=== PATIENT | female | born 1945 | race Caucasian/White ===

== ENCOUNTER 2025-02-22 22:35 | Inpatient (IN) | payer MEDICARE, MEDICAID ==
[~2025-02-22] VITALS: Ht 165.1 cm; Wt 86.5 kg
[~2025-02-22 22:35] MED LIST: ALBUAER3 IN; ALPR0.254 PO; CLOP75TA70 PO; FLUT250M2 INH; LEVO-849 PO; LISI20TA56 PO; PAR20T PO; SIMV40TA18 PO; [UNRECOGNIZED DRUG - OTHER] PO
--- NOTE | 2025-02-22 22:58 | ED.PDOC ---
History of Present Illness HPI Comments 79-year-old female who came to ER via EMS for wound check. Per EMS, patient picked up at [facility], where she has been a resident for over 3 years. Patient does have history of hypertension, diabetes, Alzheimer's, dementia, Parkinson's disease. Patient is bed-bound. Noted worsening decubitus ulcers on her buttocks and left shoulder, and was advised to seen for further evaluation and management Chief Complaint: Wound Check Time Seen by MD: 22:58 Primary Care Provider: FRANCISCO Reviewed Notes: Household Appliances Salesperson Notes Allergies: Coded Allergies: NO KNOWN ALLERGIES (Unverified , 02/07/15) Home Meds Reported Medications Albuterol Sulfate (VENTOLIN MDI) 90 Mcg Ih, 90 MCG IN 02/08/15 Fluticasone-Salmeterol (Advair Diskus 250/50) 1 Puff Ih, 1 PUFF INH BID, #3 INHALER 3 Refills 02/08/15 Paroxetine (PAXIL TABLET) 20 Mg Tb, 20 MG PO DAILY 02/08/15 Clopidogrel Bisulfate (CLOPIDOGREL) 75 Mg Tab, 75 MG PO DAILY, TAB 02/08/15 Simvastatin (Simvastatin) 40 Mg Tab, 40 MG PO DAILY, TAB 02/08/15 Alprazolam (Alprazolam) 0.25 Mg Tab, 0.25 MG PO TID, TAB 02/08/15 Levothyroxine Sodium (SYNTHROID TABLET) 100 Mcg Tb, 100 MCG PO DAILY 02/08/15 [Medroxyprogesteron] No Conflict Check, 5 MG PO DAILY 02/08/15 Lisinopril (Lisinopril) 20 Mg Tab, 20 MG PO DAILY, TAB 02/08/15 Information Source: Emergency Med Personnel Mode of Arrival: EMS Severity: Moderate Timing: Days Duration: Since onset Past Medical History PAST MEDICAL HISTORY: Alzheimer, Asthma, Dementia, DM, HTN Past Medical History (Other): Parkinson's disease, patient is bed-bound Surgical History: Denies all surgeries VALVE ASSEMBLER History: No Pertinent VALVE ASSEMBLER History Family History Family History: Unobtainable Social History Smoker: Non-Smoker Alcohol: Denies ETOH Use Drugs: Denies Drug Use Lives In: Correction Unable to Obtain due to: Altered Mental Status, Dementia Physical Exam General Appearance: No Apparent Distress, Normal HEENT: Normal ENT Inspection, Pharynx Normal, TMs Normal Neck: Full Range of Motion, Non-Tender, Normal, Normal Inspection Respiratory: Chest Non-Tender, Lungs Clear, No Accessory Muscle Use, No Respiratory Distress, Normal Breath Sounds Cardiovascular: No Edema, No JVD, No Murmur, No Gallop, Normal Peripheral Pulses, Regular Rate/Rhythm Breast Exam: Deferred Gastrointestinal: No Organomegaly, Non Tender, No Pulsatile Mass, Normal Bowel Sounds, Soft Genitalia: Deferred Pelvic: Deferred Rectal: Deferred Extremities: No calf tenderness, Normal capillary refill, Normal inspection, Normal range of motion, Non-tender, No pedal edema Musculoskeletal : Apperance: Normal Neurologic: Alert, phototypesetter operator II-XII nml as Tested, No Motor Deficits, Normal Affect, Normal Mood, No Sensory Deficits Cerebellar Function: Normal Reflexes: Normal Skin: Dry, Normal Color, Warm Lymphatic: No Adenopathy Was a procedure done? Was a procedure done?: No Differential Dx Considerations may include: Anemia, electrolyte imbalance, decubitus ulcers, dementia, urinary tract infection, pneumonia, sepsis X-Ray, Labs, Meds, VS Vital Signs Date Time Temp Pulse Resp B/P (MAP) Pulse Ox O2 Delivery O2 Flow Rate FiO2 02/22/25 22:35 98.0 52 16 131/79 97 98.0 Lab Test 02/22/25 23:07 Range/Units White Blood Count 6.5 4.4-10.8 10^3/uL Red Blood Count 3.55 L 4.0-5.20 10^6/uL Hemoglobin 10.3 L 12.2-16.2 g/dL Hematocrit 31.3 L 36.0-46.0 % Mean Corpuscular Volume 88.1 80.0-100.0 fL Mean Corpuscular Hemoglobin 29.1 28.0-32.0 pg Mean Corpuscular Hemoglobin Concent 33.0 32.0-36.0 g/dL Red Cell Distribution Width 15.6 H 11.8-14.3 % Platelet Count 112 L 140-450 10^3/uL Mean Platelet Volume 7.7 6.9-10.8 fL Neutrophils (%) (Auto) 73.1 37.0-80.0 % Lymphocytes (%) (Auto) 15.4 10.0-50.0 % Monocytes (%) (Auto) 7.8 0.0-12.0 % Eosinophils (%) (Auto) 3.2 0.0-7.0 % Basophils (%) (Auto) 0.5 0.0-2.0 % Neutrophils # (Auto) 4.7 1.6-8.6 10 ^3/uL Lymphocytes # (Auto) 1.0 0.4-5.4 10 ^3/uL Monocytes # (Auto) 0.5 0-1.3 10 ^3/uL Eosinophils # (Auto) 0.2 0-0.8 10 ^3/uL Basophils # (Auto) 0 0-0.2 10 ^3/uL Nucleated Red Blood Cells 0.0 % Sodium Level 138 136-145 mmol/L Potassium Level 3.9 3.5-5.1 mmol/L Chloride Level 102 98-107 mmol/L Carbon Dioxide Level 32 H 20-31 mmol/L Anion Gap 4 L 5-15 Blood Urea Nitrogen 12 9-23 mg/dL Creatinine 0.44 L 0.550-1.02 mg/dL Glomerular Filtration Rate Calc 98 >90 mL/min BUN/Creatinine Ratio 27.3 H 10.0-20.0 Serum Glucose 111 H 74-106 mg/dL Lactic Acid Level 1.2 0.4-2.0 mmol/L Calcium Level 8.2 L 8.7-10.4 mg/dL Magnesium Level 1.7 1.6-2.6 mg/dL Total Bilirubin 0.3 0.2-1.0 mg/dL Aspartate Amino Transferase (AST) 22 13-40 U/L Alanine Aminotransferase (ALT) < 9 7-40 U/L Alkaline Phosphatase 55 46-116 U/L Total Protein 5.3 L 5.7-8.2 g/dL Albumin 3.1 L 3.2-4.8 g/dL Current Medications Medications (Trade) Dose Ordered Sig/Carmelita Route Start Time Stop Time Status Last Admin Cefazolin Sodium 50 ml @ 100 mls/hr ONCE ONCE IV 02/22/25 22:45 02/22/25 23:14 DC 02/22/25 23:59 Time of 1ST Reevaluation: 22:54 Reevaluation 1ST: Unchanged Patient Education/Counseling: Other (Patient has dementia) Family Education/Counseling: No Family Present SEPSIS Sepsis Screen Date sepsis recognized/suspect: Feb 22, 2025 Time Sepsis recognized/suspect: 2234 Recent Procedure: No On Antibiotic Therapy: No Respiratory Rate >20: No Heart Rate >90: No Temp<36 C (96.8 F) or >38.3 C: No SBP <90 or MAP <65 mmHG: No New Acute Mental Status Change: No Is the patient on CPAP, BIPAP,: No Physician Orders Blood Culture (02/22/25 22:42) Vital Signs Date Time Temp Pulse Resp B/P (MAP) Pulse Ox O2 Delivery O2 Flow Rate FiO2 02/22/25 22:35 98.0 52 16 131/79 97 98.0 Laboratory Tests Test 02/22/25 23:07 Lactic Acid Level 1.2 mmol/L (0.4-2.0) White Blood Count 6.5 10^3/uL (4.4-10.8) Medications Medications Dose Ordered Sig/Carmelita Route Start Time Stop Time Status Last Admin Dose Admin Cefazolin Sodium 50 ml @ 100 mls/hr ONCE ONCE IV 02/22/25 22:45 02/22/25 23:14 DC 02/22/25 23:59 Departure 1 Departure Time of Disposition: 00:53 Impression: Primary Impression: Sacral decubitus ulcer, stage IV Additional Impressions: Severe protein-calorie malnutrition Dementia Disposition: ADMITTED INPATIENT Condition: Guarded Comments 79-year-old female with a history of dementia and previous sacral decubitus ulcers now brought in by ambulance from her longterm after they noticed sacral decubitus ulcer. Patient is alert but confused. Per EMS report this is her baseline. Patient does have stage IV sacral decubitus ulcer. Lab results show protein calorie malnutrition with low albumin and protein. Patient will need to be admitted for protein calorie malnutrition and sacral decubitus ulcer and dementia Critical Care Note Critical Care Time?: No Stability Stability form required: No Heart Score Heart Score: Heart Score Response (Comments) Value History N/A 0 EKG N/A 0 Age N/A 0 Risk Factors N/A 0 Troponin N/A 0 Total 0 I personally scribed for ZORAIDA RAYO MD ([email or web address]) on 02/22/25 at 22:58. Electronically submitted by Margarito Camacho ([email or web address]). ZORAIDA RAYO MD Feb 22, 2025 22:58
[2025-02-22 23:20] LABS: Hematocrit 31.3 % (36.0-46.0); Hemoglobin 10.3 g/dL (12.2-16.2); Mean Corpuscular Hemoglobin 29.1 pg (28.0-32.0); Mean Corpuscular Volume 88.1 fL (80.0-100.0); Nucleated Red Blood Cells % 0.0 %
[2025-02-22 23:43] LABS: Alkaline Phosphatase 55 U/L (46-116); Anion Gap 4 (5-15); BUN/Creatinine Ratio 27.3 (10.0-20.0); Blood Urea Nitrogen 12 mg/dL (9-23); Carbon Dioxide 32 mmol/L (20-31); Chloride 102 mmol/L (98-107); Glucose 111 mg/dL (74-106); Magnesium 1.7 mg/dL (1.6-2.6); Potassium 3.9 mmol/L (3.5-5.1); Sodium 138 mmol/L (136-145)
[2025-02-22 23:44] LABS: Alanine Aminotransferase < 9 U/L (7-40); Albumin 3.1 g/dL (3.2-4.8); Bilirubin, Total 0.3 mg/dL (0.2-1.0); Calcium 8.2 mg/dL (8.7-10.4); Total Protein 5.3 g/dL (5.7-8.2)
[2025-02-22] MEDS: ceFAZolin 1GM/50ML 50 ML IV ONE (23:59)
[2025-02-23] VITALS (9 sets, daily range): BP systolic 107–142; BP diastolic 37–83; PULSE 50–60; RESP 12–20; TEMP 96.5–98.6; O2SAT 96–100
--- NOTE | 2025-02-23 00:58 | DVHHP2 ---
Admitting Diagnosis: Nonhealing infected open sacrococcygeal decubitus ulcer wound with purulent discharge Failure to oral antibiotics and wound care Dehydration History of Present Illness Patient contact: 02/22/2025 6:00 p.m. at [facility] 79-year-old elderly white female with known history of hypertension, Parkinson's disease Osteoarthritis and severe dementia, bedridden for past five years is brought to ER Of this facility for further eval and management of signs symptoms of progressive Worsening of nonhealing open infected sacrococcygeal decubitus ulcerated wound with profuse purulent discharge, scabbed by necrotic tissue and dehydration Known history of decubitus all started wound on and off for past 10 years She was treated with help of IV and oral antibiotics around late September through early November 02. She was given daily wound care low pressure support mattress As per nursing staff of [facility] patient was noncompliant in terms of receiving Wound care or frequent turning and did not allow changing of undergarments for anticipated fear of local pains. Because of severe dementia-disoriented x3, Difficult to get detailed history. Following to my case discussion with ER staff, Admitted patient to medical floor for excisional surgical debridement Past Medical History Past medical history records: Reviewed Cardiovascular history: Known history of hypertension, bradycardia No history of acute [place]/CAD Respiratory history: History of asthma vs COPD Gastrointestinal history: GE reflux Genitourinary history: Recurrent UTI Endocrine history: Hypothyroidism Neurology history: Parkinson's disease and dementia, seizure disorder Musculoskeletal history: Osteoarthritis of bilateral hip and knees-bed ridden Hemato-oncology history: Chronic iron-deficiency anemia Psychiatric history: Major depression Patient Family History: Family history: Cardiovascular disease G8 SISTER Family history: Hypertension G8 SISTER Allergies: Coded Allergies: NO KNOWN ALLERGIES (Unverified , 02/07/15) Home Meds Active Scripts Albuterol Sulfate (Albuterol Sulfate) 0.083 % Neb, 1 VIAL NEB Q4HPRN, #50 VIAL Prov:JASS REA MD 02/23/25 Reported Medications Albuterol Sulfate (VENTOLIN MDI) 90 Mcg Ih, 90 MCG IN 02/08/15 Fluticasone-Salmeterol (Advair Diskus 250/50) 1 Puff Ih, 1 PUFF INH BID, #3 INHALER 3 Refills 02/08/15 Paroxetine (PAXIL TABLET) 20 Mg Tb, 20 MG PO DAILY 02/08/15 Clopidogrel Bisulfate (CLOPIDOGREL) 75 Mg Tab, 75 MG PO DAILY, TAB 02/08/15 Simvastatin (Simvastatin) 40 Mg Tab, 40 MG PO DAILY, TAB 02/08/15 Alprazolam (Alprazolam) 0.25 Mg Tab, 0.25 MG PO TID, TAB 02/08/15 Levothyroxine Sodium (SYNTHROID TABLET) 100 Mcg Tb, 100 MCG PO DAILY 02/08/15 [Medroxyprogesteron] No Conflict Check, 5 MG PO DAILY 02/08/15 Lisinopril (Lisinopril) 20 Mg Tab, 20 MG PO DAILY, TAB 02/08/15 Current Medications Current Medications Medications (Trade) Dose Ordered Sig/Carmelita Route PRN Reason Start Time Stop Time Status Last Admin Trazodone HCl (Desyrel) 100 mg HS PO 02/23/25 22:00 02/23/25 23:06 Review of Systems Limited four patient has dementia Constitutional: Noted easy tiredness, low-grade fever chills HEENT: Noted no sign of ENT congestion, headache, or conjunctival injection Denies hoarse voice, hearing or visual deficit Neck: Denies cervical spine local/radicular pains, denies goiters/stridor Denies stiffness spasms, reduced ROM, RS: Mild chest congestion, cough, denies wheezing, SOB, pleuritic chest pains CVS: Denies angina, palpitation, SOB, edema, orthopnea, PND GI: Denies loss of appetite, abdominal pains, tenderness, N/V/D, Denies melena, GI bleeding,constipation, : Noted passing dysuria, flank pains, frequency, hematuria, Denies passing foul odor/cloudy turbid urine, nocturia MS: Denies generalized aches/pains, back pains, spasms, stiffness, Denies radicular pains, denies generalized myalgias/muscle weakness EXTs: Denies edema, rash, open wounds, discoloration, radicular p ains NEURO: Denies hypersomnolence, confused mental status, Noted bradykinesis SKIN: Denies rashes or open ulcerated wound ENDOCRINE: Denies polyuria, polydipsia, denies intolerance to heat and cold HEM/LYMPH: Denies easy tiredness, bruising, lymphadenopathy ALLERGY: Denies allergic reactions Psychiatry: Denies anxiety or depression disorder Otherwise the Review of Systems is Negative as per History & Physical Interview: Yes Vital Signs Vital Signs Date Time Temp Pulse Resp B/P (MAP) Pulse Ox O2 Delivery O2 Flow Rate FiO2 02/24/25 19:10 99 Nasal Cannula 2.0 02/24/25 19:10 28 02/24/25 17:00 97.8 59 16 146/55 (85) 97.8 Physical Exam Vital Signs Date Time Temp Pulse Resp B/P (MAP) Pulse Ox O2 Delivery O2 Flow Rate FiO2 02/22/25 22:35 98.0 52 16 131/79 97 98.0 General appearance: Well-developed, obese built elderly white female in discomfort due to open wound over lower back with purulent discharge, but no apparent distress no respiratory distress Head: Normocephalic nontraumatic Eyes: EOMI, LINDSAY, sclera nonicteric, conjunctive- pale+1 ENT: No congestion, NSL bilateral symmetrical, oral mucosa dry Neck: Supple, carotid upstroke +2, trachea R off midline, JVD-1 cm, C spine- Reduced ROM no use of sternomastoid muscle No thyroid goiter/stridor/enlarged lymph node , Chest: Bilateral symmetrical expansions, emphysema No costochondral tenderness Breasts: I exam - Bilateral symmetrical, Pexam - deferred Lungs: clear breath sounds all over except reduced at bases CVS: PMI-1 cm medial to L MCL in fifth ICS , S1-S2 NSR no S3 GI: Abdomen soft, obese, bowel sounds normoactive No focal tenderness, No hepatosplenomegaly, no mass no hernia , : No CVA tenderness, no bladder mass palpable, genitalia-NE SKIN: Turgor dry, color pale, no rash, no icterus, No varicosity, no ulcers or wounds EXTs: No edema, color pink, no rash, no ecchymosis distal pulses +1 capillary refill <2 seconds, Onychomycosis affecting bilateral feet Stage I decubitus ulcers scabbed with necrosis over first and second digit JOINTS; Reduced range of motion and bilateral he had been means BACK: No apparent lumbosacral spinal muscle tenderness, and 4 cm in diameter stage IV decubitus ulcer with foul order purulent discharge LYMPH NODES: No cervical, axillary or inguinal lymph nodes Neuro: Awake alert disoriented x3, severe dementia Moves upper and lower extremity with Bradykinesis Sensory/gait can not be assessed DTR +2, PSYCH: Affect depressed- Diagnostic labs Lab Test 02/22/25 23:07 Range/Units White Blood Count 6.5 4.4-10.8 10^3/uL Red Blood Count 3.55 L 4.0-5.20 10^6/uL Hemoglobin 10.3 L 12.2-16.2 g/dL Hematocrit 31.3 L 36.0-46.0 % Mean Corpuscular Volume 88.1 80.0-100.0 fL Mean Corpuscular Hemoglobin 29.1 28.0-32.0 pg Mean Corpuscular Hemoglobin Concent 33.0 32.0-36.0 g/dL Red Cell Distribution Width 15.6 H 11.8-14.3 % Platelet Count 112 L 140-450 10^3/uL Mean Platelet Volume 7.7 6.9-10.8 fL Neutrophils (%) (Auto) 73.1 37.0-80.0 % Lymphocytes (%) (Auto) 15.4 10.0-50.0 % Monocytes (%) (Auto) 7.8 0.0-12.0 % Eosinophils (%) (Auto) 3.2 0.0-7.0 % Basophils (%) (Auto) 0.5 0.0-2.0 % Neutrophils # (Auto) 4.7 1.6-8.6 10 ^3/uL Lymphocytes # (Auto) 1.0 0.4-5.4 10 ^3/uL Monocytes # (Auto) 0.5 0-1.3 10 ^3/uL Eosinophils # (Auto) 0.2 0-0.8 10 ^3/uL Basophils # (Auto) 0 0-0.2 10 ^3/uL Nucleated Red Blood Cells 0.0 % Sodium Level 138 136-145 mmol/L Potassium Level 3.9 3.5-5.1 mmol/L Chloride Level 102 98-107 mmol/L Carbon Dioxide Level 32 H 20-31 mmol/L Anion Gap 4 L 5-15 Blood Urea Nitrogen 12 9-23 mg/dL Creatinine 0.44 L 0.550-1.02 mg/dL Glomerular Filtration Rate Calc 98 >90 mL/min BUN/Creatinine Ratio 27.3 H 10.0-20.0 Serum Glucose 111 H 74-106 mg/dL Lactic Acid Level 1.2 0.4-2.0 mmol/L Calcium Level 8.2 L 8.7-10.4 mg/dL Magnesium Level 1.7 1.6-2.6 mg/dL Total Bilirubin 0.3 0.2-1.0 mg/dL Aspartate Amino Transferase (AST) 22 13-40 U/L Alanine Aminotransferase (ALT) < 9 7-40 U/L Alkaline Phosphatase 55 46-116 U/L Total Protein 5.3 L 5.7-8.2 g/dL Albumin 3.1 L 3.2-4.8 g/dL SEPSIS Sepsis Screen Date sepsis recognized/suspect: Feb 22, 2025 Time Sepsis recognized/suspect: 2234 Recent Procedure: No On Antibiotic Therapy: No Respiratory Rate >20: No Heart Rate >90: No Temp<36 C (96.8 F) or >38.3 C: No SBP <90 or MAP <65 mmHG: No New Acute Mental Status Change: No Is the patient on CPAP, BIPAP,: No Physician Orders Blood Culture (02/22/25 22:42) Admit (02/23/25 00:50) Nitroglycerin Sublingual (Ntrostat Subli (02/23/25 01:00) Morphine Sulfate Injection (02/23/25 01:00) Stat Ekg For Chest Pain (02/23/25 00:50) Notify Md Of Changes From Base (02/23/25 00:50) Plant Specialist For 24 Hours (02/23/25 00:50) Emergency Dysrhythmia Protocol (02/23/25 00:50) Rhythm Strips Once Every Shift (02/23/25 00:50) Oxygen By Nasal Cannula (02/23/25 00:50) Urine Bacterial Culture (02/23/25 00:50) Chest Xray 1 View (02/23/25 01:04) * Wound Consult (02/23/25 ) * Infectious Marley Rea (02/23/25 01:04) * Infectious Marley Rea (02/23/25 00:58) * Wound Consult (02/23/25 ) *Consult Dr. Bruce (02/23/25 00:58) Ceftazidime (Fortaz) (02/23/25 10:00) Ascorbic Acid Tablet (Vitamin C Tablet) (02/23/25 10:00) Zinc Sulfate (02/23/25 10:00) Carbidopa W Levodopa 25/100mg (Sinemet 2 (02/23/25 06:00) Pantoprazole Tablet (Protonix Tablet) (02/23/25 10:00) Florastor (S. Boulardii) (Florastor) (02/23/25 10:00) Trazodone Hcl (Desyrel) (02/23/25 22:00) Enoxaparin Sodium (Lovenox) (02/23/25 10:00) * Surgical Consult (02/23/25 ) Sod Chl 0.45% (Sodium Chloride 0.45% Via (02/23/25 01:15) Vitamin B12 (02/23/25 07:00) Clopidogrel Bisulfate (Plavix) (02/23/25 10:00) Lisinopril Tablet (Zestril Tablet) (02/23/25 10:00) Albuterol Medneb (Ventolin Medneb) (02/23/25 01:45) Atorvastatin (Lipitor) (02/23/25 17:30) Citalopram Tablet (Celexa Tablet) (02/23/25 10:00) Haloperidol Lactate Injection (Haldol) (02/23/25 01:45) Regular Diet (02/23/25 Breakfast) * Wound Consult (02/23/25 ) Levothyroxine Tablet (Synthroid Tablet) (02/23/25 07:00) Obtain Consent For: (02/23/25 10:32) Apply Z-Guard BID (02/23/25 13:13) * Dietary Consult (02/23/25 19:23) Cleanse Wound With Wound Clean BID (02/23/25 13:13) Apply: BID (02/23/25 13:13) Basic Metabolic Panel (02/25/25 05:00) Basic Metabolic Panel (02/26/25 05:00) Basic Metabolic Panel (02/27/25 05:00) Basic Metabolic Panel (02/28/25 05:00) Code Status (02/23/25 20:43) Straight Cath Patient (02/24/25 09:30) Vital Signs Date Time Temp Pulse Resp B/P (MAP) Pulse Ox O2 Delivery O2 Flow Rate FiO2 02/24/25 19:10 99 Nasal Cannula 2.0 02/24/25 19:10 99 Nasal Cannula* 2 28 02/24/25 17:00 97.8 59 16 146/55 (85) 99 97.8 02/24/25 13:00 96.7 58 16 124/58 (80) 92 96.7 02/24/25 11:58 151/62 02/24/25 09:00 97.0 53 16 151/62 (91) 100 97.0 02/24/25 08:00 51 02/24/25 06:41 98 Nasal Cannula* 2 28 02/24/25 06:41 98 Nasal Cannula 2.0 02/24/25 05:24 97.4 56 18 143/44 (77) 100 97.4 02/23/25 21:00 98.6 60 18 112/83 (93) 98 98.6 02/23/25 20:00 51 02/23/25 20:00 Nasal Cannula* 2 28 02/23/25 13:00 97.2 52 20 107/72 (84) 100 97.2 02/23/25 10:00 135/57 02/23/25 09:18 97.4 51 16 135/51 (79) 100 97.4 02/23/25 08:00 50 02/23/25 07:06 99 Nasal Cannula* 2 28 02/23/25 07:06 99 Nasal Cannula 2.0 02/23/25 05:00 96.5 51 17 121/40 (67) 100 96.5 02/23/25 02:14 97.9 54 12 112/37 100 2.0 28 97.9 02/23/25 02:05 Nasal Cannula* 2 28 02/23/25 02:00 98.4 52 18 142/65 (90) 96 98.4 02/23/25 01:51 54 02/23/25 01:30 97.9 55 12 112/37 (62) 100 97.9 02/22/25 23:45 97.9 51 12 112/31 (58) 100 97.9 02/22/25 23:45 Nasal Cannula* 2 28 02/22/25 22:35 98.0 52 16 131/79 97 98.0 Laboratory Tests Test 02/22/25 23:07 02/24/25 06:24 Lactic Acid Level 1.2 mmol/L (0.4-2.0) White Blood Count 6.5 10^3/uL (4.4-10.8) 5.9 10^3/uL (4.4-10.8) Results Labs Test 02/24/25 11:53 02/24/25 09:45 02/24/25 06:24 02/23/25 07:13 Range/Units POC Glucose 155 H 70-106 mg/dl Urine Color Yellow Yellow Urine Clarity Clear Clear Urine pH 5.5 5.0-9.0 Urine Specific [place] 1.018 1.001-1.035 Urine Protein Negative Negative Urine Ketones 1+ H Negative Urine Blood Negative Negative /uL Urine Nitrite Negative Negative Urine Bilirubin Negative Negative Urine Urobilinogen Normal Negative mg/dL Urine Leukocyte Esterase Negative Negative /uL Urine RBC 1 0 - 4 /hpf Urine Microscopic WBC 1 0-5 /HPF Urine Squamous Epithelial Cells Few <5 /hpf Urine Bacteria None seen None Seen /hpf Urine Glucose Normal Normal mg/dL White Blood Count 5.9 4.4-10.8 10^3/uL Red Blood Count 3.69 L 4.0-5.20 10^6/uL Hemoglobin 10.8 L 12.2-16.2 g/dL Hematocrit 32.3 L 36.0-46.0 % Mean Corpuscular Volume 87.3 80.0-100.0 fL Mean Corpuscular Hemoglobin 29.3 28.0-32.0 pg Mean Corpuscular Hemoglobin Concent 33.6 32.0-36.0 g/dL Red Cell Distribution Width 15.4 H 11.8-14.3 % Platelet Count 132 L 140-450 10^3/uL Mean Platelet Volume 7.8 6.9-10.8 fL Neutrophils (%) (Auto) 65.2 37.0-80.0 % Lymphocytes (%) (Auto) 21.1 10.0-50.0 % Monocytes (%) (Auto) 9.5 0.0-12.0 % Eosinophils (%) (Auto) 3.6 0.0-7.0 % Basophils (%) (Auto) 0.6 0.0-2.0 % Neutrophils # (Auto) 3.8 1.6-8.6 10 ^3/uL Lymphocytes # (Auto) 1.2 0.4-5.4 10 ^3/uL Monocytes # (Auto) 0.6 0-1.3 10 ^3/uL Eosinophils # (Auto) 0.2 0-0.8 10 ^3/uL Basophils # (Auto) 0 0-0.2 10 ^3/uL Nucleated Red Blood Cells 0.1 % Prothrombin Time 10.9 9.3-11.8 sec Prothrombin Time INR 1.03 0.9-1.15 Activated Partial Thromboplast Time 31.3 24.5-34.5 SEC Sodium Level 138 136-145 mmol/L Potassium Level 3.8 3.5-5.1 mmol/L Chloride Level 100 98-107 mmol/L Carbon Dioxide Level 32 H 20-31 mmol/L Anion Gap 6 5-15 Blood Urea Nitrogen 11 9-23 mg/dL Creatinine 0.50 L 0.550-1.02 mg/dL Glomerular Filtration Rate Calc 95 >90 mL/min BUN/Creatinine Ratio 22.0 H 10.0-20.0 Serum Glucose 76 74-106 mg/dL Calcium Level 8.3 L 8.7-10.4 mg/dL Magnesium Level 1.6 1.6-2.6 mg/dL Total Bilirubin 0.4 0.2-1.0 mg/dL Aspartate Amino Transferase (AST) 20 13-40 U/L Alanine Aminotransferase (ALT) < 9 7-40 U/L Alkaline Phosphatase 58 46-116 U/L Total Protein 5.6 L 5.7-8.2 g/dL Albumin 3.3 3.2-4.8 g/dL Phosphorus Level 2.9 2.4-5.1 mg/dL Triglycerides Level 74 < 150 mg/dL Cholesterol Level 144 < 200 mg/dL LDL Cholesterol 109 H < 100 mg/dL HDL Cholesterol 28 L 40-59 mg/dL Test 02/22/25 23:07 Range/Units Lactic Acid Level 1.2 0.4-2.0 mmol/L Microbiology Date/Time Source Procedure Growth Status 02/23/25 22:45 Nose MRSA Screen - Final Complete 02/22/25 23:07 Blood Blood Culture - Preliminary Resulted Primary Diagnosis Nonhealing stage IV infected decubitus ulcerated wound of sacrococcygeal back Admitting Diagnosis: Nonhealing stage IV infected decubitus ulcer wound of sacrococcygeal area a. Failure to outpatient antibiotics and daily wound care b. Urine/fecal matter contamination due to noncompliance Moderate to severe hypovolemia Acute on chronic iron-deficiency anemia Chronic iron-deficiency anemia due to a. Chronic infection of decubitus wound b. Low-grade blood loss at decubitus Sinus bradycardia 2' Diagnosis/Comorbidities Overweight obesity in adult with current BMI > 25-29 kg per m2 Protein calorie malnutrition Medical decision making Overall patient's hemodynamic condition appears to be clinically ill From ongoing nonhealing stage IV decubitus ulcer over lower back With purulent discharge * Known long history of decubitus ulcer on and off for past 10 years * Known long history of decreased ulcer infected with Gram-negative rods including E coli * Known long history of chronic urinary tract infection * Known history of urinary and bowel incontinence and thereby contamination * Known history of noncompliance for daily wound care or change of under garments for anticipated fear of pains * There is also concern about osteomyelitis-recommended MRI * Refer patient to Dr. Abdirahman Rea ID * Refer patient to Dr. Arturo koenig for excisional surgical debridement * Refer patient to marketing analytics specialist RN * Recommended patient to receive broad-spectrum IV antibiotics including antipseudomonal * Recommended patient to receive IV hydration for state of dehydration * Recommend protein calorie supplements vitamin-C and zinc for healing of the wound * Updated patient's condition to patient's nephew Mr. Boykin Plan Admit to telemetry Obtain decubitus wound gram stain and cultures Obtain urine and blood cultures Place patient on broad-spectrum IV antibiotics-IV Fortaz Careful IV hydration Refer patient to wound care specialized RN for daily wound care Refer patient to Dr. Arturo koenig for surgical debridement Refer patient to Dr. Abdirahman rea for Infectious Disease Protein calorie supplements Lopressor mattress support Continue vitamin-C and zinc VTE precautions Update patient The patient 's family is well informed by me about 1. Clinical impression, treatment plans, side effects of medications, course of the disease and guarded prognosis 2. All patient's question/ concerns raised by patient are satisfactorily addressed by me Plan discussed with: Other (Patient's nephew Ashutosh) Code Visit Code Visit Total Time (mins): 120 JASS REA MD Feb 23, 2025 00:58
[2025-02-23] MEDS ORDERED: NITROGLYCERIN 0.4 MG SL TAB SL PRN (01:00)
[2025-02-23] MEDS ORDERED: MORPHINE SULFATE INJ 2 MG/ml SYRG IV PRN (01:00)
[2025-02-23] MEDS ORDERED: ALBU0.084 NEB (01:33)
[2025-02-23] MEDS: cefTAZidime 1 GM in SODIUM CHL 0.9% 50 ML IV ONE (01:33)
[2025-02-23] MEDS: SOD CHL 0.45% 1,000 ML IV ONE (01:35)
[2025-02-23] MEDS: SOD CHL 0.45% 1,000 ML IV SCH (01:36)
[2025-02-23] MEDS: cefTAZidime 1 GM VL ONE (01:36)
[2025-02-23] MEDS ORDERED: HALOPERIDOL LACTATE 5 MG/ML INJ VIAL IM PRN (01:45)
[2025-02-23] MEDS ORDERED: ALBUTEROL SULF 2.5 MG/0.5ML(0.5%) NEB SOLN NEB PRN (01:45)
--- NOTE | 2025-02-23 01:53 | DVH ---
EXAM: XY CHEST XRAY 1 VIEW CLINICAL HISTORY: BASELINE MD REQUEST TECHNIQUE: Single frontal view of the chest WID: COMPARISON: None FINDINGS: Lines and tubes: None Chest: The heart size and pulmonary vasculature is within normal limits. Calcified plaque projects over the aortic arch. Reticular opacities are seen in both lungs. Small consolidation in the medial left lung base. No pneu mothorax. The osseous structures are grossly intact. IMPRESSION: Reticular opacities in both lungs. DDX includes fibrosis/ scarring, atypical infection, or less likel y pulmonary edema. Small consolidation in the medial left lung base. DDX includes atelectasis or pneumonia.
[2025-02-23] MEDS ORDERED: CARBIDOPA W LEVODOPA 25/100mg TABLET PO ONE (06:00)
--- NOTE | 2025-02-23 06:02 | ECG ---
[facility] Test Date: 2025-02-23 Test Time: 01:51:12 Pat Name: SASKIA IVEY Department: ED Room: 0216T B Gender: F [employer] Cost Estimator: KAI : 1945 Requested By: JASS COTTO Order Number: [id number] Reading MD: Yariel Little Measurements Intervals Semmes Rate: 54 P: 58 ID: [id number] QRS: 27 QRSD: 88 T: 43 QT: 447 QTc: 424 Interpretive Statements Sinus rhythm Low voltage, extremity leads Baseline wander in lead(s) I,II,aVR Electronically Signed On 02-25-2025 22:52:43 PDT by Yariel Little Please click the below link to view image of tracing.
[2025-02-23] MEDS: CARBIDOPA W LEVODOPA 25/100mg TABLET PO SCH (06:37)
[2025-02-23] MEDS: LEVOTHYROXINE SODIUM 100 MCG TAB PO SCH (06:39)
[2025-02-23] MEDS ORDERED: LEVOTHYROXINE SODIUM 100 MCG TAB PO SCH (07:00)
[2025-02-23] MEDS ORDERED: LEVOTHYROXINE SODIUM 25 MCG TAB PO SCH (07:00)
[2025-02-23 08:13] LABS: Alkaline Phosphatase 55 U/L (46-116); Anion Gap 6 (5-15); BUN/Creatinine Ratio 25.5 (10.0-20.0); Blood Urea Nitrogen 12 mg/dL (9-23); Chloride 100 mmol/L (98-107); Potassium 4.1 mmol/L (3.5-5.1); Sodium 139 mmol/L (136-145); Triglycerides 74 mg/dL (< 150)
[2025-02-23 08:14] LABS: Bilirubin, Total 0.4 mg/dL (0.2-1.0); Cholesterol 144 mg/dL (< 200)
[2025-02-23 08:15] LABS: Alanine Aminotransferase < 9 U/L (7-40); Albumin 3.2 g/dL (3.2-4.8); Calcium 8.3 mg/dL (8.7-10.4); Carbon Dioxide 33 mmol/L (20-31); Glucose 71 mg/dL (74-106); HDL Cholesterol 28 mg/dL (40-59); Total Protein 5.5 g/dL (5.7-8.2)
[2025-02-23] MEDS: LISINOPRIL 20 MG TAB PO SCH (10:00)
[2025-02-23] MEDS ORDERED: ZINC SULFATE 220mg CAP or TAB PO SCH (10:00)
[2025-02-23] MEDS ORDERED: ASCORBIC ACID 500 MG TAB PO SCH (10:00)
[2025-02-23] MEDS: CLOPIDOGREL BISULFATE 75 MG TAB PO SCH (11:46)
[2025-02-23] MEDS: CITALOPRAM HYDROBR 20 MG TAB PO SCH (11:46)
[2025-02-23] MEDS: ASCORBIC ACID 500 MG TAB PO SCH (11:46)
[2025-02-23] MEDS: FLORASTOR (S. BOULARDII) 250 MG CAP PO SCH (11:46)
[2025-02-23] MEDS: ZINC SULFATE 220mg CAP or TAB PO SCH (11:47)
[2025-02-23] MEDS: ENOXAPARIN SOD 40 MG/0.4 ML SYRINGE SC SCH (11:47)
[2025-02-23] MEDS: PANTOPRAZOLE 40 MG TAB PO SCH (11:47)
[2025-02-23] MEDS: cefTAZidime 1 GM in SODIUM CHL 0.9% 50 ML IV SCH (12:01)
[2025-02-23] MEDS: ATORVASTATIN 20 MG TAB PO SCH (17:30)
--- NOTE | 2025-02-23 20:25 | DVHPN2 ---
Progress Note - Dictate Date Seen: Feb 23, 2025 Subjective BC+ for gr Cocci vital signs Vital Sign Date Time Temp Pulse Resp B/P (MAP) Pulse Ox O2 Delivery O2 Flow Rate FiO2 02/23/25 13:00 97.2 52 20 107/72 (84) 100 97.2 02/23/25 07:06 Nasal Cannula* 2 28 Total Intake and Output 02/22/25 02/22/25 02/23/25 15:00 23:00 07:00 Intake Total 150 ml Balance 150 ml medications Current Medications Medications Dose Ordered Sig/Carmelita Route Start Time Stop Time Status Last Admin Dose Admin Nitroglycerin 0.4 mg Q5MINP PRN SL 02/23/25 01:00 Morphine Sulfate 2 mg Q30M PRN IV 02/23/25 01:00 Ceftazidime/ Dextrose 1 gm/ Sodium Chloride 50 ml @ 50 mls/hr Q8HR IV 02/23/25 10:00 02/23/25 12:01 50 MLS/HR Ascorbic Acid 500 mg BID PO 02/23/25 10:00 02/23/25 11:46 500 MG Zinc Sulfate 220 mg DAILY PO 02/23/25 10:00 02/23/25 11:47 220 MG Carbidopa/Levodopa 1 tab TID PO 02/23/25 06:00 02/23/25 14:45 1 TAB Pantoprazole Sodium 40 mg DAILY PO 02/23/25 10:00 02/23/25 11:47 40 MG Saccharomyces Boulardii 250 mg BID PO 02/23/25 10:00 02/23/25 11:46 250 MG Trazodone HCl 100 mg HS PO 02/23/25 22:00 Enoxaparin Sodium 40 mg DAILY SC 02/23/25 10:00 02/23/25 11:47 40 MG Sodium Chloride 1,000 ml @ 75 mls/hr [id number] IV 02/23/25 01:15 02/23/25 14:43 75 MLS/HR Clopidogrel Bisulfate 75 mg DAILY PO 02/23/25 10:00 02/23/25 11:46 75 MG Lisinopril 20 mg DAILY PO 02/23/25 10:00 Albuterol 2.5 mg Q4HR PRN NEB 02/23/25 01:45 Atorvastatin Calcium 40 mg DAILY@DINNER PO 02/23/25 17:30 8/16/25 17:30 40 MG Citalopram Hydrobromide 20 mg DAILY PO 02/23/25 10:00 02/23/25 11:46 20 MG Haloperidol Lactate 1 mg Q6HR PRN IM 02/23/25 01:45 Levothyroxine Sodium 75 mcg QAM PO 02/23/25 07:00 02/23/25 06:39 75 MCG laboratory and microbiology Laboratory Tests 02/23/25 07:13 02/22/25 23:07 Test 02/23/25 07:13 Range/Units Serum Glucose 71 L 74-106 mg/dL Assessment/Plan add vancomycin JASS COTTO MD Feb 23, 2025 20:25
[2025-02-24] VITALS (9 sets, daily range): BP systolic 122–151; BP diastolic 44–85; PULSE 16–59; RESP 16–18; TEMP 96.7–97.8; O2SAT 92–100
[2025-02-24 07:34] LABS: Hematocrit 32.3 % (36.0-46.0); Hemoglobin 10.8 g/dL (12.2-16.2); Mean Corpuscular Hemoglobin 29.3 pg (28.0-32.0); Mean Corpuscular Volume 87.3 fL (80.0-100.0); Nucleated Red Blood Cells % 0.1 %
[2025-02-24 07:46] LABS: INR 1.03 (0.9-1.15); Partial Thromboplastin Time 31.3 SEC (24.5-34.5); Prothrombin Time 10.9 sec (9.3-11.8)
[2025-02-24 07:49] LABS: Alkaline Phosphatase 58 U/L (46-116); Chloride 100 mmol/L (98-107); Glucose 76 mg/dL (74-106); Potassium 3.8 mmol/L (3.5-5.1); Sodium 138 mmol/L (136-145)
[2025-02-24 07:50] LABS: Alanine Aminotransferase < 9 U/L (7-40); Albumin 3.3 g/dL (3.2-4.8); Anion Gap 6 (5-15); BUN/Creatinine Ratio 22.0 (10.0-20.0); Bilirubin, Total 0.4 mg/dL (0.2-1.0); Blood Urea Nitrogen 11 mg/dL (9-23); Calcium 8.3 mg/dL (8.7-10.4); Carbon Dioxide 32 mmol/L (20-31); Total Protein 5.6 g/dL (5.7-8.2)
[2025-02-24 10:29] LABS: Urine Protein, UAD Negative (Negative)
--- NOTE | 2025-02-24 22:25 | DVHPN2 ---
Progress Note - Dictate Subjective BC+ for gr Cocci Patient is currently continued on IV Fortaz and vancomycin Patient receives daily wound care Patient is to receive surgical debridement by morning of 02/25/2025 vital signs Vital Sign Date Time Temp Pulse Resp B/P (MAP) Pulse Ox O2 Delivery O2 Flow Rate FiO2 02/24/25 19:10 99 Nasal Cannula 2.0 02/24/25 19:10 28 02/24/25 17:00 97.8 59 16 146/55 (85) 97.8 Total Intake and Output 02/23/25 02/23/25 02/24/25 15:00 23:00 07:00 Intake Total 250 ml 400 ml 300 ml Output Total 2 ml Balance 250 ml 398 ml 300 ml medications Current Medications Medications Dose Ordered Sig/Carmelita Route Start Time Stop Time Status Last Admin Dose Admin Nitroglycerin 0.4 mg Q5MINP PRN SL 02/23/25 01:00 Morphine Sulfate 2 mg Q30M PRN IV 02/23/25 01:00 Ceftazidime/ Dextrose 1 gm/ Sodium Chloride 50 ml @ 50 mls/hr Q8HR IV 02/23/25 10:00 02/24/25 14:00 Ascorbic Acid 500 mg BID PO 02/23/25 10:00 02/24/25 11:49 Zinc Sulfate 220 mg DAILY PO 02/23/25 10:00 02/24/25 11:49 Carbidopa/Levodopa 1 tab TID PO 02/23/25 06:00 02/24/25 15:29 Pantoprazole Sodium 40 mg DAILY PO 02/23/25 10:00 02/24/25 11:49 Saccharomyces Boulardii 250 mg BID PO 02/23/25 10:00 02/24/25 11:49 Trazodone HCl 100 mg HS PO 02/23/25 22:00 02/23/25 23:06 Enoxaparin Sodium 40 mg DAILY SC 02/23/25 10:00 02/24/25 10:00 Sodium Chloride 1,000 ml @ 75 mls/hr [id number] IV 02/23/25 01:15 02/24/25 17:15 Clopidogrel Bisulfate 75 mg DAILY PO 02/23/25 10:00 02/24/25 11:50 Lisinopril 20 mg DAILY PO 02/23/25 10:00 02/24/25 11:58 Albuterol 2.5 mg Q4HR PRN NEB 02/23/25 01:45 Atorvastatin Calcium 40 mg DAILY@DINNER PO 02/23/25 17:30 02/24/25 18:44 Citalopram Hydrobromide 20 mg DAILY PO 02/23/25 10:00 02/24/25 12:26 Haloperidol Lactate 1 mg Q6HR PRN IM 02/23/25 01:45 Levothyroxine Sodium 75 mcg QAM PO 02/23/25 07:00 02/24/25 06:28 laboratory and microbiology Laboratory Tests 02/24/25 06:24 Test 02/24/25 06:24 Range/Units Serum Glucose 76 74-106 mg/dL Assessment/Plan Continue vancomycin Dietary Evaluation Review Recommendations by RD: Dietary education by RD, Decrease Calorie Intake Comments: 1) Initiate Ensure High Protein qd 2) Add cardiac restriction to diet. Encourage optimal PO intake 3) Continue vitamin C and zinc sulfate supplementation 4) Follow-up with cardiology 4) Continue to monitor I&O, labs, and skin integrity Expected Outcomes/Goals: 1) appetite and labs to improve 2) wounds to improve 3) f/u in 3-5 days Plan discussed with: Other (Nephew) JASS COTTO MD Feb 24, 2025 22:25
[2025-02-25] VITALS (10 sets, daily range): BP systolic 100–129; BP diastolic 52–71; PULSE 53–95; RESP 14–18; TEMP 96.6–98; O2SAT 97–100
[2025-02-25] MEDS: BUPIVACAINE HCL 0.25% P/F 10 ML VIAL ONE (08:45)
[2025-02-25] MEDS: LIDOCAINE W/ EPINEPHRINE 1% 20ML VIAL ONE (08:45)
[2025-02-25] MEDS: ceFAZolin 2 GM/D5W50ml 50 ML IV ONE (09:06)
[2025-02-25] MEDS ORDERED: ONDANSETRON HCL 4 MG/2 ML VIAL ONE (10:05)
[2025-02-25] MEDS ORDERED: PROPOFOL 10 MG/ML 20 ML IV ONE (10:05)
[2025-02-25] MEDS ORDERED: MIDAZOLAM HCL 2MG/2ML 2ml VIAL (1mg/ml) ONE (10:05)
[2025-02-25] MEDS ORDERED: KETAMINE 50mg/ML 1ml syringe ONE (10:05)
[2025-02-25] MEDS ORDERED: GLYCOPYRROLATE 0.2 MG/ML 1ML VIAL ONE (10:05)
[2025-02-25] MEDS ORDERED: ceFAZolin 1GM VL ONE (10:32)
[2025-02-25] MEDS: ACETAMINOPHEN IV 1000 MG/100ML (10MG/ML) IV ONE (11:00)
[2025-02-25 13:19] LABS: Chloride 102 mmol/L (98-107); Sodium 138 mmol/L (136-145)
[2025-02-25 13:20] LABS: Anion Gap 6 (5-15); Carbon Dioxide 30 mmol/L (20-31); Potassium 3.4 mmol/L (3.5-5.1)
[2025-02-25 13:21] LABS: Calcium 8.1 mg/dL (8.7-10.4)
[2025-02-25 13:25] LABS: BUN/Creatinine Ratio 20.0 (10.0-20.0); Blood Urea Nitrogen 10 mg/dL (9-23); Glucose 87 mg/dL (74-106)
--- NOTE | 2025-02-25 19:50 | DVHOP2 ---
Operative Report - 2 Report Details Date: 02/25/25 Preop Diagnosis: non healing sacral wound Postop Diagnosis: non healing sacral wound Surgeon: Dr. Arturo Bruce, Deo Avalos , Anesthesiologist: Dr. Werner Anesthesia: Mac Consent: The patient was informed of the risks and benefits of the procedure. These include but are not limited to complications of anesthesia, postoperative infection, incomplete relief of symptoms, recurrence of symptoms, damage to blood vessels, nerves and tendons, deep venous thrombosis, pulmonary embolism and possible need for repeat surgery in the future. Name of Procedure Performed debridement of sacral wound Procedure Details Procedure Details: Under the supervision of Dr. Bruce, the patient was placed in a right lateral position and was subsequently prepped and draped in a sterile fashion for wound debridement. A scalpel was utilized to excise necrotic tissue from the wound margins. A curette was then used for the debridement of necrotic tissue within the wound bed. The wound measured 4 x 4 cm through the muscle with some areas already with exposed bone. Following debridement, the wound was irrigated using a pulse lavage system with 1 liter of saline containing 1 gram of Ancef. A Prevena wound vacuum was then applied to the wound. The sponge, needle, and blade counts were confirmed to be correct at the conclusion of the procedure. The patient was then transferred to the recovery unit in stable condition Condition Good Disposition Still a Patient DEO AVALOS NP Feb 25, 2025 19:50
--- NOTE | 2025-02-25 23:16 | DVHPN2 ---
Progress Note - Dictate Subjective The patient received uneventful excisional surgical debridement of decubitus ulcer by Dr. Arturo Eng There were no post of complications BC+ for gr Cocci Patient is currently continued on IV Fortaz and vancomycin Noted patient to have urinary bladder retention this afternoon Bladder scan estimated 750 mL Recommended Johnson catheter drainage vital signs Vital Sign Date Time Temp Pulse Resp B/P (MAP) Pulse Ox O2 Delivery O2 Flow Rate FiO2 02/25/25 21:00 96.6 55 17 104/55 (71) 100 96.6 02/25/25 10:54 Nasal Cannula 2.0 02/25/25 08:00 28 Total Intake and Output 02/24/25 02/24/25 02/25/25 15:00 23:00 07:00 Intake Total 660 ml 120 ml 350 ml Balance 660 ml 120 ml 350 ml medications Current Medications Medications Dose Ordered Sig/Carmelita Route Start Time Stop Time Status Last Admin Dose Admin Nitroglycerin 0.4 mg Q5MINP PRN SL 02/23/25 01:00 Morphine Sulfate 2 mg Q30M PRN IV 02/23/25 01:00 Ceftazidime/ Dextrose 1 gm/ Sodium Chloride 50 ml @ 50 mls/hr Q8HR IV 02/23/25 10:00 02/25/25 22:14 50 MLS/HR Ascorbic Acid 500 mg BID PO 02/23/25 10:00 02/25/25 22:15 500 MG Zinc Sulfate 220 mg DAILY PO 02/23/25 10:00 02/24/25 11:49 220 MG Carbidopa/Levodopa 1 tab TID PO 02/23/25 06:00 02/25/25 22:15 1 TAB Pantoprazole Sodium 40 mg DAILY PO 02/23/25 10:00 02/24/25 11:49 40 MG Saccharomyces Boulardii 250 mg BID PO 02/23/25 10:00 02/25/25 22:15 250 MG Trazodone HCl 100 mg HS PO 02/23/25 22:00 02/25/25 22:15 100 MG Enoxaparin Sodium 40 mg DAILY SC 02/23/25 10:00 02/24/25 10:00 40 MG Sodium Chloride 1,000 ml @ 75 mls/hr [id number] IV 02/23/25 01:15 02/25/25 19:55 75 MLS/HR Clopidogrel Bisulfate 75 mg DAILY PO 02/23/25 10:00 02/24/25 11:50 75 MG Lisinopril 20 mg DAILY PO 02/23/25 10:00 02/24/25 11:58 20 MG Albuterol 2.5 mg Q4HR PRN NEB 02/23/25 01:45 Atorvastatin Calcium 40 mg DAILY@DINNER PO 02/23/25 17:30 02/25/25 17:15 40 MG Citalopram Hydrobromide 20 mg DAILY PO 02/23/25 10:00 02/24/25 12:26 20 MG Haloperidol Lactate 1 mg Q6HR PRN IM 02/23/25 01:45 Levothyroxine Sodium 75 mcg QAM PO 02/23/25 07:00 02/25/25 06:28 75 MCG laboratory and microbiology Laboratory Tests 02/25/25 12:45 02/24/25 06:24 Test 02/25/25 12:45 Range/Units Serum Glucose 87 74-106 mg/dL Assessment/Plan Continue vancomycin Dietary Evaluation Review Recommendations by RD: Dietary education by RD, Decrease Calorie Intake Comments: 1) Initiate Ensure High Protein qd 2) Add cardiac restriction to diet. Encourage optimal PO intake 3) Continue vitamin C and zinc sulfate supplementation 4) Follow-up with cardiology 4) Continue to monitor I&O, labs, and skin integrity Expected Outcomes/Goals: 1) appetite and labs to improve 2) wounds to improve 3) f/u in 3-5 days JASS COTTO MD Feb 25, 2025 23:16
[2025-02-26] VITALS (12 sets, daily range): BP systolic 109–132; BP diastolic 52–82; PULSE 54–76; RESP 17–18; TEMP 97–98.4; O2SAT 95–100
--- NOTE | 2025-02-26 10:23 | DVHPN2 ---
Progress Note Date Seen: Feb 26, 2025 Medical Necessity Reason Pt with a Central, PICC or Fol: No Objective vital signs Vital Sign Date Time Temp Pulse Resp B/P (MAP) Pulse Ox O2 Delivery O2 Flow Rate FiO2 02/26/25 10:03 132/52 02/26/25 08:36 97.0 57 17 100 97.0 02/26/25 07:19 Nasal Cannula 1.0 02/26/25 07:19 24 Total Intake and Output 02/25/25 02/25/25 02/26/25 15:00 23:00 07:00 Intake Total 10 ml 800 ml 180 ml Output Total 900 ml Balance 10 ml 800 ml -720 ml medications Current Medications Medications Dose Ordered Sig/Carmelita Route Start Time Stop Time Status Last Admin Dose Admin Nitroglycerin 0.4 mg Q5MINP PRN SL 02/23/25 01:00 Morphine Sulfate 2 mg Q30M PRN IV 02/23/25 01:00 Ceftazidime/ Dextrose 1 gm/ Sodium Chloride 50 ml @ 50 mls/hr Q8HR IV 02/23/25 10:00 02/26/25 05:58 50 MLS/HR Ascorbic Acid 500 mg BID PO 02/23/25 10:00 02/26/25 10:03 500 MG Zinc Sulfate 220 mg DAILY PO 02/23/25 10:00 02/26/25 10:03 220 MG Carbidopa/Levodopa 1 tab TID PO 02/23/25 06:00 02/26/25 05:58 1 TAB Pantoprazole Sodium 40 mg DAILY PO 02/23/25 10:00 02/26/25 10:03 40 MG Saccharomyces Boulardii 250 mg BID PO 02/23/25 10:00 02/26/25 10:03 250 MG Trazodone HCl 100 mg HS PO 02/23/25 22:00 02/25/25 22:15 100 MG Enoxaparin Sodium 40 mg DAILY SC 02/23/25 10:00 02/24/25 10:00 40 MG Sodium Chloride 1,000 ml @ 75 mls/hr [id number] IV 02/23/25 01:15 02/25/25 19:55 75 MLS/HR Clopidogrel Bisulfate 75 mg DAILY PO 02/23/25 10:00 02/26/25 10:02 75 MG Lisinopril 20 mg DAILY PO 02/23/25 10:00 02/26/25 10:03 20 MG Albuterol 2.5 mg Q4HR PRN NEB 02/23/25 01:45 Atorvastatin Calcium 40 mg DAILY@DINNER PO 02/23/25 17:30 02/25/25 17:15 40 MG Citalopram Hydrobromide 20 mg DAILY PO 02/23/25 10:00 02/26/25 10:02 20 MG Haloperidol Lactate 1 mg Q6HR PRN IM 02/23/25 01:45 Levothyroxine Sodium 75 mcg QAM PO 02/23/25 07:00 02/26/25 06:00 75 MCG laboratory and microbiology Laboratory Tests 02/25/25 12:45 02/24/25 06:24 Test 02/25/25 12:45 Range/Units Serum Glucose 87 74-106 mg/dL Problem List/Assessment/Plan Problem List/Assessment/Plan 02/26/[address] WBC NORMAL, AFEBRILE, CAN BE DISCHARGED WITH WOUND VAC AND HOME [facility]OUND [facility]. Plan discussed with: Patient Dietary Evaluation Review Recommendations by RD: Dietary education by RD, Decrease Calorie Intake Comments: 1) Initiate Ensure High Protein qd 2) Add cardiac restriction to diet. Encourage optimal PO intake 3) Continue vitamin C and zinc sulfate supplementation 4) Follow-up with cardiology 4) Continue to monitor I&O, labs, and skin integrity Expected Outcomes/Goals: 1) appetite and labs to improve 2) wounds to improve 3) f/u in 3-5 days ANYA MARQUES MD Feb 26, 2025 10:23
--- NOTE | 2025-02-26 21:53 | DVHPN2 ---
Progress Note - Dictate Date Seen: Feb 26, 2025 Medical Necessity Reason Pt with a Central, PICC or Fol: No Subjective The patient is seen on postop day three of her receiving uneventful excisional surgical debridement of decubitus ulcer by Dr. Arturo Del Real No delayed postop complications Patient is continued on IV Fortaz and vancomycin for positive blood cultures Wound cultures are still pending Refer patient to Dr. Abdirahman mcintyre ID Overnight events are reviewed through medical chart and case discussion with patient's assigned RN while making rounds on patient on the day of service vital signs Vital Sign Date Time Temp Pulse Resp B/P (MAP) Pulse Ox O2 Delivery O2 Flow Rate FiO2 02/26/25 16:34 97.3 61 18 122/60 (80) 100 97.3 02/26/25 13:23 2.0 28 02/26/25 08:05 Nasal Cannula* Total Intake and Output 02/25/25 02/25/25 02/26/25 15:00 23:00 07:00 Intake Total 10 ml 800 ml 180 ml Output Total 900 ml Balance 10 ml 800 ml -720 ml medications Current Medications Medications Dose Ordered Sig/Carmelita Route Start Time Stop Time Status Last Admin Dose Admin Nitroglycerin 0.4 mg Q5MINP PRN SL 02/23/25 01:00 Morphine Sulfate 2 mg Q30M PRN IV 02/23/25 01:00 Ceftazidime/ Dextrose 1 gm/ Sodium Chloride 50 ml @ 50 mls/hr Q8HR IV 02/23/25 10:00 02/26/25 14:40 50 MLS/HR Ascorbic Acid 500 mg BID PO 02/23/25 10:00 02/26/25 10:03 500 MG Zinc Sulfate 220 mg DAILY PO 02/23/25 10:00 02/26/25 10:03 220 MG Carbidopa/Levodopa 1 tab TID PO 02/23/25 06:00 02/26/25 13:54 1 TAB Pantoprazole Sodium 40 mg DAILY PO 02/23/25 10:00 02/26/25 10:03 40 MG Saccharomyces Boulardii 250 mg BID PO 02/23/25 10:00 02/26/25 10:03 250 MG Trazodone HCl 100 mg HS PO 02/23/25 22:00 02/25/25 22:15 100 MG Enoxaparin Sodium 40 mg DAILY SC 02/23/25 10:00 02/24/25 10:00 40 MG Sodium Chloride 1,000 ml @ 75 mls/hr [id number] IV 02/23/25 01:15 02/25/25 19:55 75 MLS/HR Clopidogrel Bisulfate 75 mg DAILY PO 02/23/25 10:00 02/26/25 10:02 75 MG Lisinopril 20 mg DAILY PO 02/23/25 10:00 02/26/25 10:03 20 MG Albuterol 2.5 mg Q4HR PRN NEB 02/23/25 01:45 Atorvastatin Calcium 40 mg DAILY@DINNER PO 02/23/25 17:30 02/26/25 16:59 40 MG Citalopram Hydrobromide 20 mg DAILY PO 02/23/25 10:00 02/26/25 10:02 20 MG Haloperidol Lactate 1 mg Q6HR PRN IM 02/23/25 01:45 Levothyroxine Sodium 75 mcg QAM PO 02/23/25 07:00 02/26/25 06:00 75 MCG laboratory and microbiology Laboratory Tests 02/25/25 12:45 02/24/25 06:24 Test 02/25/25 12:45 Range/Units Serum Glucose 87 74-106 mg/dL Assessment/Plan Check CBC CMP Await for Wound cultures Requested ID consult from Dr. Abdirahman Cotto Continue IV Fortaz and vancomycin Dietary Evaluation Review Recommendations by RD: Dietary education by RD, Decrease Calorie Intake Comments: 1) Initiate Ensure High Protein qd 2) Add cardiac restriction to diet. Encourage optimal PO intake 3) Continue vitamin C and zinc sulfate supplementation 4) Follow-up with cardiology 4) Continue to monitor I&O, labs, and skin integrity Expected Outcomes/Goals: 1) appetite and labs to improve 2) wounds to improve 3) f/u in 3-5 days JASS COTTO MD Feb 26, 2025 21:53
--- NOTE | 2025-02-26 22:10 | DVHINCON2 ---
Date of service: Feb 25, 2025 Family History: Family history: Cardiovascular disease G8 SISTER Family history: Hypertension G8 SISTER Allergies: Coded Allergies: NO KNOWN ALLERGIES (Unverified , 02/07/15) Home Meds Active Scripts Albuterol Sulfate (Albuterol Sulfate) 0.083 % Neb, 1 VIAL NEB Q4HPRN, #50 VIAL Prov:JASS REA MD 02/23/25 Reported Medications Albuterol Sulfate (VENTOLIN MDI) 90 Mcg Ih, 90 MCG IN 02/08/15 Fluticasone-Salmeterol (Advair Diskus 250/50) 1 Puff Ih, 1 PUFF INH BID, #3 INHALER 3 Refills 02/08/15 Paroxetine (PAXIL TABLET) 20 Mg Tb, 20 MG PO DAILY 02/08/15 Clopidogrel Bisulfate (CLOPIDOGREL) 75 Mg Tab, 75 MG PO DAILY, TAB 02/08/15 Simvastatin (Simvastatin) 40 Mg Tab, 40 MG PO DAILY, TAB 02/08/15 Alprazolam (Alprazolam) 0.25 Mg Tab, 0.25 MG PO TID, TAB 02/08/15 Levothyroxine Sodium (SYNTHROID TABLET) 100 Mcg Tb, 100 MCG PO DAILY 02/08/15 [Medroxyprogesteron] No Conflict Check, 5 MG PO DAILY 02/08/15 Lisinopril (Lisinopril) 20 Mg Tab, 20 MG PO DAILY, TAB 02/08/15 Vital Signs Vital Signs Date Time Temp Pulse Resp B/P (MAP) Pulse Ox O2 Delivery O2 Flow Rate FiO2 02/26/25 16:34 97.3 61 18 122/60 (80) 100 97.3 02/26/25 13:23 2.0 28 02/26/25 08:05 Nasal Cannula* Labs/Diagnostic Data Labs Test 02/25/25 12:45 02/24/25 11:53 02/24/25 09:45 02/24/25 06:24 Range/Units Sodium Level 138 136-145 mmol/L Potassium Level 3.4 L 3.5-5.1 mmol/L Chloride Level 102 98-107 mmol/L Carbon Dioxide Level 30 20-31 mmol/L Anion Gap 6 5-15 Blood Urea Nitrogen 10 9-23 mg/dL Creatinine 0.50 L 0.550-1.02 mg/dL Glomerular Filtration Rate Calc 95 >90 mL/min BUN/Creatinine Ratio 20.0 10.0-20.0 Serum Glucose 87 74-106 mg/dL Calcium Level 8.1 L 8.7-10.4 mg/dL POC Glucose 155 H 70-106 mg/dl Urine Color Yellow Yellow Urine Clarity Clear Clear Urine pH 5.5 5.0-9.0 Urine Specific [place] 1.018 1.001-1.035 Urine Protein Negative Negative Urine Ketones 1+ H Negative Urine Blood Negative Negative /uL Urine Nitrite Negative Negative Urine Bilirubin Negative Negative Urine Urobilinogen Normal Negative mg/dL Urine Leukocyte Esterase Negative Negative /uL Urine RBC 1 0 - 4 /hpf Urine Microscopic WBC 1 0-5 /HPF Urine Squamous Epithelial Cells Few <5 /hpf Urine Bacteria None seen None Seen /hpf Urine Glucose Normal Normal mg/dL White Blood Count 5.9 4.4-10.8 10^3/uL Red Blood Count 3.69 L 4.0-5.20 10^6/uL Hemoglobin 10.8 L 12.2-16.2 g/dL Hematocrit 32.3 L 36.0-46.0 % Mean Corpuscular Volume 87.3 80.0-100.0 fL Mean Corpuscular Hemoglobin 29.3 28.0-32.0 pg Mean Corpuscular Hemoglobin Concent 33.6 32.0-36.0 g/dL Red Cell Distribution Width 15.4 H 11.8-14.3 % Platelet Count 132 L 140-450 10^3/uL Mean Platelet Volume 7.8 6.9-10.8 fL Neutrophils (%) (Auto) 65.2 37.0-80.0 % Lymphocytes (%) (Auto) 21.1 10.0-50.0 % Monocytes (%) (Auto) 9.5 0.0-12.0 % Eosinophils (%) (Auto) 3.6 0.0-7.0 % Basophils (%) (Auto) 0.6 0.0-2.0 % Neutrophils # (Auto) 3.8 1.6-8.6 10 ^3/uL Lymphocytes # (Auto) 1.2 0.4-5.4 10 ^3/uL Monocytes # (Auto) 0.6 0-1.3 10 ^3/uL Eosinophils # (Auto) 0.2 0-0.8 10 ^3/uL Basophils # (Auto) 0 0-0.2 10 ^3/uL Nucleated Red Blood Cells 0.1 % Prothrombin Time 10.9 9.3-11.8 sec Prothrombin Time INR 1.03 0.9-1.15 Activated Partial Thromboplast Time 31.3 24.5-34.5 SEC Magnesium Level 1.6 1.6-2.6 mg/dL Total Bilirubin 0.4 0.2-1.0 mg/dL Aspartate Amino Transferase (AST) 20 13-40 U/L Alanine Aminotransferase (ALT) < 9 7-40 U/L Alkaline Phosphatase 58 46-116 U/L Total Protein 5.6 L 5.7-8.2 g/dL Albumin 3.3 3.2-4.8 g/dL Test 02/23/25 07:13 02/22/25 23:07 Range/Units Phosphorus Level 2.9 2.4-5.1 mg/dL Triglycerides Level 74 < 150 mg/dL Cholesterol Level 144 < 200 mg/dL LDL Cholesterol 109 H < 100 mg/dL HDL Cholesterol 28 L 40-59 mg/dL Vitamin B12 Level 592 211-911 pg/mL Lactic Acid Level 1.2 0.4-2.0 mmol/L Microbiology Date/Time Source Procedure Growth Status 02/24/25 09:45 Voided Urine Urine Culture - Final Complete 02/23/25 22:45 Nose MRSA Screen - Final Complete 02/22/25 23:07 Blood Blood Culture - Final Staph hominis subsp homins Complete Problems(with codes): (1) Osteomyelitis (2) Dehydration (3) Acute colitis (4) Parkinson's disease (5) Sacral decubitus ulcer, stage IV (6) Severe protein-calorie malnutrition (7) Dementia Plan/Recommendation ASSESSMENT AND PLAN: ID Problem List: \-- Chronic sacral decubitus ulcer with necrotic tissue \-- Chronic osteomyelitis (suspected, sacrum) \-- Sacral ulcer cellulitis/myositis \-- Severe dementia \-- Parkinson's disease \-- Hypertension \-- Osteoarthritis \-- Bedbound >5 years \-- Right hip prosthesis Assessment This is an 79 y.o. female with a past medical history of hypertension, Parkinson's disease, osteoarthritis, severe dementia (bedridden for last five years), and right hip prosthesis, who presents with a chronic sacral decubitus ulcer with necrotic tissue and purulent discharge. The ulcer has been previously debrided and treated with both IV and oral antibiotics in late September, but has subsequently worsened. The patient is unable to participate in wound care due to advanced dementia and is agitated and uncooperative with nursing staff. On arrival, noted sacral ulcer with necrotic tissue, foul odor, prolonged purulent discharge, and surrounding erythematous borders. Lab results demonstrate WBC 6.5, hemoglobin 2.3, platelets 112, sodium 138, BUN 27.3, creatinine 0.44. Chest X-ray showed reticular opacities in both lungs, fibrosis vs atypical infection or pulmonary edema, and small consolidation at the left medial lung base. Status post operative debridement (by Dr. Bruce and Dr. Avalos), with debridement of a 4 x 4 cm area extending through muscle with exposed bone. Patient has chronic infection, likely to improve with chronic wound vacuum- assisted closure (VAC) and IV antibiotics for 6 weeks to cover for possible osteomyelitis. Blood cultures show Staphylococcus hominis (likely skin lurdes contamination), but vancomycin will provide coverage. Methicillin-resistant Staphylococcus aureus (MRSA) is negative. Urine culture is negative. Plan: \-- Continue wound care at custodial facility. \-- Start and continue IV vancomycin and ceftriaxone for 6 weeks empirically to cover for sacral osteomyelitis. \-- Proceed with PICC line placement for long-term IV antibiotics. \-- Continue wound VAC therapy until healing/closure. \-- Monitor for signs of new infection or sepsis during course. \-- Additional antibiotic coverage (2-week course) for acute episodes of sacral ulcer cellulitis, myositis, as warranted until wound closure. \-- Supportive care for dementia and Parkinson's; continue chronic medications. \-- Monitor labs and adjust antibiotics per culture results and sensitivities as required. Isolation Precautions: Standard Assessment and plan discussed with patients care team per above. Plan is subject to change pending new diagnostics or clinical status. Updates may be appended as new information becomes available. Thank you for consult. ID will continue to follow. Please contact Infectious Disease for any concerns. Liz Rea M.D. [facility] Ph: ? ? Teams text: [email or web address] \ History: The patient's chart and medications were reviewed in detail and the patient was seen and examined. History obtained from: chart and available records Dottie Rodriguez is an 79 y.o. female with a past medical history of hypertension, Parkinson's disease, osteoarthritis, severe dementia (bedbound for five years), and prior right hip prosthesis placement. She presents with chronic sacral decubitus ulcer with necrotic tissue, foul odor, and purulent discharge. Previously treated with IV and oral antibiotics in late September for the ulcer; since then, the wound has worsened. The patient is unable to participate in wound care or repositioning due to severe dementia, and is described as agitated and uncooperative at the custodial facility. Surgical debridement was performed, with removal of necrotic tissue and exposure of bone (4 x 4 cm area through muscle). Review of Systems: A complete 10-system review of systems was completed, negative except as noted in the HPI or here. ROS: -CONSTITUTIONAL: Denies fever or chills, no weight loss reported. -HEENT: Not discussed. -RESPIRATORY: No shortness of breath or cough reported. Chest X-ray with opacities as described above. -CARDIOVASCULAR: Not discussed. -GASTROINTESTINAL: Not discussed. -GENITOURINARY: Not discussed. -MUSCULOSKELETAL: Bedbound, history of right hip prosthesis. Osteoarthritis, bradykinesia, hand tremors present. -SKIN: Positive for sacral decubitus ulcer with necrosis, purulence, erythematous borders, and foul odor. -NEUROLOGICAL: Severe dementia (A\&O x1 at baseline), bradykinesia, hand tremors. -PSYCHIATRIC: Agitated, argumentative, severe dementia affecting mood/behavior. Past Medical History: Diagnosis Date Hypertension Parkinson's disease Osteoarthritis Severe dementia Right hip prosthesis placement Past Surgical History: Right hip joint replacement Home Medications: albuterol (dose/frequency not provided) fluticasone (dose/frequency not provided) paroxetine (dose/frequency not provided) clopidogrel (Plavix - dose/frequency not provided) simvastatin (dose/frequency not provided) alprazolam (dose/frequency not provided) levofloxacin (dose/frequency not provided) Allergies: Not provided in transcript. Family History: Not provided in transcript. Social History: \-- Bedridden for 5 years \-- Resides in custodial facility \-- Tobacco use: Not provided in transcript. \-- Alcohol use: Not provided in transcript. \-- Substance use: Not provided in transcript. \-- Marital status, occupational history, support: Not provided in transcript. Social Determinants of Health: Not provided in transcript. Objective: Vital Signs on Arrival: Not provided in transcript. Most Recent Vital Signs: Not provided in transcript. Admission Weight: Not provided in transcript. Physical Exam: General: NAD Neck: Supple. No masses. HEENT: PERRL. Normal lids and conjunctiva. Moist mucous membranes. Oropharynx without lesions, exudates or excessive erythema. Normal appearance of the external aspects of the nose and ears. Heart: Regular rhythm, normal rate. No murmur. No lower extremity edema. Lungs: Normal respiratory effort. Clear to auscultation bilaterally. No wheezes. No crackles. Abdomen: Soft. Non-tender. Non-distended. No masses or abdominal hernia. Msk: No digital cyanosis. Normal strength and tone in all 4 limbs. Skin: Large sacral decubitus ulcer with necrotic tissue, purulent discharge, foul odor, erythematous borders. Status post recent debridement with exposed bone. Neuro: Alertness limited by severe dementia. Bradykinesia, hand tremors noted. Psych: Agitated and argumentative, severe dementia. Oriented to self only. Lines: Active Lines: \-- Not provided in transcript but PICC line planned. Diagnostic Studies: Available diagnostic studies were reviewed personally. Significant relevant results and findings are outlined below or addressed in the Assessment and Plan above. Pertinent Imaging: Chest X-ray: \-- Reticular opacities in both lungs, fibrosis vs atypical infection or pulmonary edema. \-- Small consolidation at left medial lung base. Labs: WBC: 6.5 Hemoglobin: 2.3 Platelets: 112 Sodium: 138 BUN: 27.3 Creatinine: 0.44 Microbiology: Blood cultures: Staph hominis (likely skin lurdes contamination) Urine culture: Negative MRSA: Negative Plan discussed with: Patient LIZ REA MD Feb 26, 2025 22:10
[2025-02-27] VITALS (10 sets, daily range): BP systolic 102–123; BP diastolic 44–67; PULSE 55–60; RESP 17–18; TEMP 96.8–98.7; O2SAT 97–100
[2025-02-27 07:01] LABS: Hematocrit 30.3 % (36.0-46.0); Hemoglobin 10.0 g/dL (12.2-16.2); Mean Corpuscular Hemoglobin 29.1 pg (28.0-32.0); Mean Corpuscular Volume 87.8 fL (80.0-100.0); Nucleated Red Blood Cells % 0.1 %
[2025-02-27 07:25] LABS: Alkaline Phosphatase 56 U/L (46-116); Anion Gap 7 (5-15); BUN/Creatinine Ratio 15.4 (10.0-20.0); Bilirubin, Total 0.3 mg/dL (0.2-1.0); Carbon Dioxide 30 mmol/L (20-31); Chloride 103 mmol/L (98-107); Glucose 82 mg/dL (74-106); Potassium 3.6 mmol/L (3.5-5.1); Sodium 140 mmol/L (136-145)
[2025-02-27 07:30] LABS: Alanine Aminotransferase < 9 U/L (7-40); Albumin 3.1 g/dL (3.2-4.8); Blood Urea Nitrogen 8 mg/dL (9-23); Calcium 8.4 mg/dL (8.7-10.4); Total Protein 5.5 g/dL (5.7-8.2)
--- NOTE | 2025-02-27 19:13 | DVHPN2 ---
Progress Note - Dictate Date Seen: Feb 27, 2025 Medical Necessity Reason Pt with a Central, PICC or Fol: No Subjective The patient is seen on postop day three of her receiving uneventful excisional surgical debridement of decubitus ulcer by Dr. Arturo Del Real No delayed postop complications Patient is continued on IV Fortaz and vancomycin for positive blood cultures Wound cultures are still pending Refer patient to Dr. Abdirahman mcintyre ID Overnight events are reviewed through medical chart and case discussion with patient's assigned RN while making rounds on patient on the day of service vital signs Vital Sign Date Time Temp Pulse Resp B/P (MAP) Pulse Ox O2 Delivery O2 Flow Rate FiO2 02/27/25 16:35 97.2 55 17 103/52 (69) 99 97.2 02/27/25 08:00 Nasal Cannula* 2 28 Total Intake and Output 02/26/25 02/26/25 02/27/25 15:00 23:00 07:00 Intake Total 250 ml 75 ml Output Total 100 ml 850 ml Balance 150 ml -775 ml medications Current Medications Medications Dose Ordered Sig/Carmelita Route Start Time Stop Time Status Last Admin Dose Admin Nitroglycerin 0.4 mg Q5MINP PRN SL 02/23/25 01:00 Morphine Sulfate 2 mg Q30M PRN IV 02/23/25 01:00 Ceftazidime/ Dextrose 1 gm/ Sodium Chloride 50 ml @ 50 mls/hr Q8HR IV 02/23/25 10:00 02/27/25 14:00 50 MLS/HR Ascorbic Acid 500 mg BID PO 02/23/25 10:00 02/27/25 10:54 500 MG Zinc Sulfate 220 mg DAILY PO 02/23/25 10:00 02/27/25 10:25 220 MG Carbidopa/Levodopa 1 tab TID PO 02/23/25 06:00 02/27/25 14:00 1 TAB Pantoprazole Sodium 40 mg DAILY PO 02/23/25 10:00 02/27/25 10:25 40 MG Saccharomyces Boulardii 250 mg BID PO 02/23/25 10:00 02/27/25 10:50 250 MG Trazodone HCl 100 mg HS PO 02/23/25 22:00 02/26/25 22:42 100 MG Enoxaparin Sodium 40 mg DAILY SC 02/23/25 10:00 02/27/25 10:27 40 MG Sodium Chloride 1,000 ml @ 75 mls/hr [id number] IV 02/23/25 01:15 02/26/25 22:50 75 MLS/HR Clopidogrel Bisulfate 75 mg DAILY PO 02/23/25 10:00 02/27/25 10:26 75 MG Lisinopril 20 mg DAILY PO 02/23/25 10:00 02/26/25 10:03 20 MG Albuterol 2.5 mg Q4HR PRN NEB 02/23/25 01:45 Atorvastatin Calcium 40 mg DAILY@DINNER PO 02/23/25 17:30 02/27/25 17:49 40 MG Citalopram Hydrobromide 20 mg DAILY PO 02/23/25 10:00 02/27/25 10:48 20 MG Haloperidol Lactate 1 mg Q6HR PRN IM 02/23/25 01:45 Levothyroxine Sodium 75 mcg QAM PO 02/23/25 07:00 02/27/25 06:20 75 MCG laboratory and microbiology Laboratory Tests 02/27/25 05:57 Test 02/27/25 05:57 Range/Units Serum Glucose 82 74-106 mg/dL Assessment/Plan Check CBC CMP Await for Wound cultures Requested ID consult from Dr. Abdirahman Cotto Continue IV Fortaz and vancomycin Dietary Evaluation Review Recommendations by RD: Dietary education by RD, Decrease Calorie Intake Comments: 1) Initiate Ensure High Protein qd 2) Add cardiac restriction to diet. Encourage optimal PO intake 3) Continue vitamin C and zinc sulfate supplementation 4) Follow-up with cardiology 4) Continue to monitor I&O, labs, and skin integrity Expected Outcomes/Goals: 1) appetite and labs to improve 2) wounds to improve 3) f/u in 3-5 days JASS COTTO MD Feb 27, 2025 19:13
[2025-02-27] MEDS: LORazepam 2MG/ML-1ML VIAL IV ONE (19:30)
[2025-02-27] MEDS: SOD CHL 0.45% WITH 20MEQ KCL 1,000 ML IV SCH (20:37)
[2025-02-27] MEDS: Ensure HIGH Protein Chocolate 8oz Bottle PO SCH (22:00)
[2025-02-28] VITALS (9 sets, daily range): BP systolic 91–129; BP diastolic 45–72; PULSE 54–69; RESP 17; TEMP 97.5–98.7; O2SAT 95–100
[2025-02-28 07:14] LABS: Chloride 105 mmol/L (98-107); Potassium 3.9 mmol/L (3.5-5.1); Sodium 139 mmol/L (136-145)
[2025-02-28 07:15] LABS: Anion Gap 8 (5-15); Carbon Dioxide 26 mmol/L (20-31)
[2025-02-28 07:20] LABS: Glucose 75 mg/dL (74-106)
[2025-02-28 07:23] LABS: BUN/Creatinine Ratio 9.1 (10.0-20.0); Blood Urea Nitrogen < 5 mg/dL (9-23); Calcium 8.0 mg/dL (8.7-10.4)
--- NOTE | 2025-02-28 08:49 | DVHPN2 ---
Progress Note Date Seen: Feb 28, 2025 Medical Necessity Reason Pt with a Central, PICC or Fol: No Objective vital signs Vital Sign Date Time Temp Pulse Resp B/P (MAP) Pulse Ox O2 Delivery O2 Flow Rate FiO2 02/28/25 05:00 97.7 55 17 91/48 (62) 99 97.7 02/27/25 20:00 Nasal Cannula* 2 28 Total Intake and Output 02/27/25 02/27/25 02/28/25 15:00 23:00 07:00 Intake Total 50 ml 325 ml 300 ml Output Total 550 ml Balance 50 ml 325 ml -250 ml medications Current Medications Medications Dose Ordered Sig/Carmelita Route Start Time Stop Time Status Last Admin Dose Admin Nitroglycerin 0.4 mg Q5MINP PRN SL 02/23/25 01:00 Morphine Sulfate 2 mg Q30M PRN IV 02/23/25 01:00 Ceftazidime/ Dextrose 1 gm/ Sodium Chloride 50 ml @ 50 mls/hr Q8HR IV 02/23/25 10:00 02/28/25 05:53 50 MLS/HR Ascorbic Acid 500 mg BID PO 02/23/25 10:00 02/27/25 22:23 500 MG Zinc Sulfate 220 mg DAILY PO 02/23/25 10:00 02/27/25 10:25 220 MG Carbidopa/Levodopa 1 tab TID PO 02/23/25 06:00 02/28/25 05:57 1 TAB Pantoprazole Sodium 40 mg DAILY PO 02/23/25 10:00 02/27/25 10:25 40 MG Saccharomyces Boulardii 250 mg BID PO 02/23/25 10:00 02/27/25 22:24 250 MG Trazodone HCl 100 mg HS PO 02/23/25 22:00 02/27/25 22:24 100 MG Enoxaparin Sodium 40 mg DAILY SC 02/23/25 10:00 02/27/25 10:27 40 MG Clopidogrel Bisulfate 75 mg DAILY PO 02/23/25 10:00 02/27/25 10:26 75 MG Lisinopril 20 mg DAILY PO 02/23/25 10:00 02/26/25 10:03 20 MG Albuterol 2.5 mg Q4HR PRN NEB 02/23/25 01:45 Atorvastatin Calcium 40 mg DAILY@DINNER PO 02/23/25 17:30 02/27/25 17:49 40 MG Citalopram Hydrobromide 20 mg DAILY PO 02/23/25 10:00 02/27/25 10:48 20 MG Haloperidol Lactate 1 mg Q6HR PRN IM 02/23/25 01:45 Levothyroxine Sodium 75 mcg QAM PO 02/23/25 07:00 02/28/25 06:00 75 MCG Potassium Chloride/Sodium Chloride 1,000 ml @ 50 mls/hr Q20H IV 02/27/25 19:30 02/27/25 20:37 50 MLS/HR Enteral Nutritional Formula 240 ml QID PO 02/27/25 22:00 laboratory and microbiology Laboratory Tests 02/28/25 05:46 02/27/25 05:57 Test 02/28/25 05:46 Range/Units Serum Glucose 75 74-106 mg/dL Problem List/Assessment/Plan Problem List/Assessment/Plan 02/26/[address] WBC NORMAL, AFEBRILE, CAN BE DISCHARGED WITH WOUND VAC AND HOME [facility]. 02/28/25 "SURGICALLY STABLE" WILL SIGN OFF, PLEASE RECALL IF NEEDED Plan discussed with: Other Dietary Evaluation Review Recommendations by RD: Dietary education by RD, Decrease Calorie Intake Comments: 1) Initiate Ensure High Protein qd 2) Add cardiac restriction to diet. Encourage optimal PO intake 3) Continue vitamin C and zinc sulfate supplementation 4) Follow-up with cardiology 4) Continue to monitor I&O, labs, and skin integrity Expected Outcomes/Goals: 1) appetite and labs to improve 2) wounds to improve 3) f/u in 3-5 days ANYA MARQUES MD Feb 28, 2025 08:49
--- NOTE | 2025-02-28 19:37 | DVHPN2 ---
Progress Note - Dictate Date Seen: Feb 28, 2025 Medical Necessity Reason Pt with a Central, PICC or Fol: No Subjective The patient is seen on postop day three of her receiving uneventful excisional surgical debridement of decubitus ulcer by Dr. Arturo Del Real No delayed postop complications Patient is continued on IV Fortaz and vancomycin for positive blood cultures Wound cultures are still pending Refer patient to Dr. Abdirahman mcintyre ID Overnight events are reviewed through medical chart and case discussion with patient's assigned RN while making rounds on patient on the day of service vital signs Vital Sign Date Time Temp Pulse Resp B/P (MAP) Pulse Ox O2 Delivery O2 Flow Rate FiO2 02/28/25 19:01 100 Nasal Cannula 1.0 02/28/25 19:01 24 02/28/25 17:42 98.7 69 17 95/45 (62) 98.7 Total Intake and Output 02/27/25 02/27/25 02/28/25 15:00 23:00 07:00 Intake Total 50 ml 325 ml 350 ml Output Total 550 ml Balance 50 ml 325 ml -200 ml medications Current Medications Medications Dose Ordered Sig/Carmelita Route Start Time Stop Time Status Last Admin Dose Admin Nitroglycerin 0.4 mg Q5MINP PRN SL 02/23/25 01:00 Morphine Sulfate 2 mg Q30M PRN IV 02/23/25 01:00 Ceftazidime/ Dextrose 1 gm/ Sodium Chloride 50 ml @ 50 mls/hr Q8HR IV 02/23/25 10:00 02/28/25 14:00 50 MLS/HR Ascorbic Acid 500 mg BID PO 02/23/25 10:00 02/28/25 10:00 500 MG Zinc Sulfate 220 mg DAILY PO 02/23/25 10:00 02/28/25 10:00 220 MG Carbidopa/Levodopa 1 tab TID PO 02/23/25 06:00 02/28/25 14:00 1 TAB Pantoprazole Sodium 40 mg DAILY PO 02/23/25 10:00 02/28/25 10:00 40 MG Saccharomyces Boulardii 250 mg BID PO 02/23/25 10:00 02/28/25 10:00 250 MG Trazodone HCl 100 mg HS PO 02/23/25 22:00 02/27/25 22:24 100 MG Enoxaparin Sodium 40 mg DAILY SC 02/23/25 10:00 02/28/25 10:00 40 MG Clopidogrel Bisulfate 75 mg DAILY PO 02/23/25 10:00 02/28/25 10:00 75 MG Lisinopril 20 mg DAILY PO 02/23/25 10:00 02/28/25 10:00 20 MG Albuterol 2.5 mg Q4HR PRN NEB 02/23/25 01:45 Atorvastatin Calcium 40 mg DAILY@DINNER PO 02/23/25 17:30 02/28/25 18:07 40 MG Citalopram Hydrobromide 20 mg DAILY PO 02/23/25 10:00 02/28/25 10:00 20 MG Haloperidol Lactate 1 mg Q6HR PRN IM 02/23/25 01:45 Levothyroxine Sodium 75 mcg QAM PO 02/23/25 07:00 02/28/25 06:00 75 MCG Potassium Chloride/Sodium Chloride 1,000 ml @ 50 mls/hr Q20H IV 02/27/25 19:30 02/28/25 15:39 50 MLS/HR Enteral Nutritional Formula 240 ml QID PO 02/27/25 22:00 02/28/25 18:00 240 ML laboratory and microbiology Laboratory Tests 02/28/25 05:46 02/27/25 05:57 Test 02/28/25 05:46 Range/Units Serum Glucose 75 74-106 mg/dL Assessment/Plan Check CBC CMP Await for Wound cultures Requested ID consult from Dr. Abdirahman Cotto Continue IV Fortaz and vancomycin Dietary Evaluation Review Recommendations by RD: Dietary education by RD, Decrease Calorie Intake Comments: 1) Initiate Ensure High Protein qd 2) Add cardiac restriction to diet. Encourage optimal PO intake 3) Continue vitamin C and zinc sulfate supplementation 4) Follow-up with cardiology 4) Continue to monitor I&O, labs, and skin integrity Expected Outcomes/Goals: 1) appetite and labs to improve 2) wounds to improve 3) f/u in 3-5 days JASS COTTO MD Feb 28, 2025 19:37
--- NOTE | 2025-02-28 19:44 | DVHPN2 ---
Consult Progress Note Date Seen: Feb 26, 2025 Subjective Patient reports: Other (patient is agitated , switched to ceftazodine and off vancomycin . has a wound vac with drainage ) Objective vital signs Vital Sign Date Time Temp Pulse Resp B/P (MAP) Pulse Ox O2 Delivery O2 Flow Rate FiO2 02/28/25 19:01 100 Nasal Cannula 1.0 02/28/25 19:01 24 02/28/25 17:42 98.7 69 17 95/45 (62) 98.7 Total Intake and Output 02/27/25 02/27/25 02/28/25 15:00 23:00 07:00 Intake Total 50 ml 325 ml 350 ml Output Total 550 ml Balance 50 ml 325 ml -200 ml medications Current Medications Medications Dose Ordered Sig/Carmelita Route Start Time Stop Time Status Last Admin Dose Admin Nitroglycerin 0.4 mg Q5MINP PRN SL 02/23/25 01:00 Morphine Sulfate 2 mg Q30M PRN IV 02/23/25 01:00 Ceftazidime/ Dextrose 1 gm/ Sodium Chloride 50 ml @ 50 mls/hr Q8HR IV 02/23/25 10:00 02/28/25 14:00 50 MLS/HR Ascorbic Acid 500 mg BID PO 02/23/25 10:00 02/28/25 10:00 500 MG Zinc Sulfate 220 mg DAILY PO 02/23/25 10:00 02/28/25 10:00 220 MG Carbidopa/Levodopa 1 tab TID PO 02/23/25 06:00 02/28/25 14:00 1 TAB Pantoprazole Sodium 40 mg DAILY PO 02/23/25 10:00 02/28/25 10:00 40 MG Saccharomyces Boulardii 250 mg BID PO 02/23/25 10:00 02/28/25 10:00 250 MG Trazodone HCl 100 mg HS PO 02/23/25 22:00 02/27/25 22:24 100 MG Enoxaparin Sodium 40 mg DAILY SC 02/23/25 10:00 02/28/25 10:00 40 MG Clopidogrel Bisulfate 75 mg DAILY PO 02/23/25 10:00 02/28/25 10:00 75 MG Lisinopril 20 mg DAILY PO 02/23/25 10:00 02/28/25 10:00 20 MG Albuterol 2.5 mg Q4HR PRN NEB 02/23/25 01:45 Atorvastatin Calcium 40 mg DAILY@DINNER PO 02/23/25 17:30 02/28/25 18:07 40 MG Citalopram Hydrobromide 20 mg DAILY PO 02/23/25 10:00 02/28/25 10:00 20 MG Haloperidol Lactate 1 mg Q6HR PRN IM 02/23/25 01:45 Levothyroxine Sodium 75 mcg QAM PO 02/23/25 07:00 02/28/25 06:00 75 MCG Potassium Chloride/Sodium Chloride 1,000 ml @ 50 mls/hr Q20H IV 02/27/25 19:30 02/28/25 15:39 50 MLS/HR Enteral Nutritional Formula 240 ml QID PO 02/27/25 22:00 02/28/25 18:00 240 ML Physical Exam: General: NAD Neck: Supple. No masses. HEENT: PERRL. Normal lids and conjunctiva. Moist mucous membranes. Oropharynx without lesions, exudates or excessive erythema. Normal appearance of the external aspects of the nose and ears. Heart: Regular rhythm, normal rate. No murmur. No lower extremity edema. Lungs: Normal respiratory effort. Clear to auscultation bilaterally. No wheezes. No crackles. Abdomen: Soft. Non-tender. Non-distended. No masses or abdominal hernia. Msk: No digital cyanosis. Normal strength and tone in all 4 limbs. Skin: Large sacral decubitus ulcer with necrotic tissue, purulent discharge, foul odor, erythematous borders. Status post recent debridement with exposed bone. Neuro: Alertness limited by severe dementia. Bradykinesia, hand tremors noted. Psych: Agitated and argumentative, severe dementia. Oriented to self only. laboratory and microbiology Laboratory Tests 02/28/25 05:46 02/27/25 05:57 Test 02/28/25 05:46 Range/Units Serum Glucose 75 74-106 mg/dL Problem List/Assessment/Plan Problems(with codes): (1) Bronchial asthma (2) DIARRHEA (3) Hypertension (4) Dehydration (5) Acute colitis (6) Parkinson's disease (7) Sacral decubitus ulcer, stage IV Problem List/Assessment/Plan ASSESSMENT AND PLAN: ID Problem List: \-- Chronic sacral decubitus ulcer with necrotic tissue \-- Chronic osteomyelitis (suspected, sacrum) \-- Sacral ulcer cellulitis/myositis \-- Severe dementia \-- Parkinson's disease \-- Hypertension \-- Osteoarthritis \-- Bedbound >5 years \-- Right hip prosthesis Assessment This is an 79 y.o. female with a past medical history of hypertension, Parkinson's disease, osteoarthritis, severe dementia (bedridden for last five years), and right hip prosthesis, who presents with a chronic sacral decubitus ulcer with necrotic tissue and purulent discharge. The ulcer has been previously debrided and treated with both IV and oral antibiotics in late September, but has subsequently worsened. The patient is unable to participate in wound care due to advanced dementia and is agitated and uncooperative with nursing staff. On arrival, noted sacral ulcer with necrotic tissue, foul odor, prolonged purulent discharge, and surrounding erythematous borders. Lab results demonstrate WBC 6.5, hemoglobin 2.3, platelets 112, sodium 138, BUN 27.3, creatinine 0.44. Chest X-ray showed reticular opacities in both lungs, fibrosis vs atypical infection or pulmonary edema, and small consolidation at the left medial lung base. Status post operative debridement (by Dr. Bruce and Dr. Avalos), with debridement of a 4 x 4 cm area extending through muscle with exposed bone. Patient has chronic infection, likely to improve with chronic wound vacuum- assisted closure (VAC) and IV antibiotics for 6 weeks to cover for possible osteomyelitis. Blood cultures show Staphylococcus hominis (likely skin lurdes contamination), but vancomycin will provide coverage. Methicillin-resistant Staphylococcus aureus (MRSA) is negative. Urine culture is negative. 02/26: tolerating wound vac however appears to be getting soiled Plan: - agree with ceftazodine therapy to cover for pseudomonas, concerned with 3x a day dosing would switch to cefepime instead - add vancomycin \-- [facility]. \-- Start and continue IV vancomycin and ceftriaxone for 6 weeks empirically to cover for sacral osteomyelitis. \-- Proceed with PICC line placement for long-term IV antibiotics. \-- Continue wound VAC therapy until healing/closure. \-- Monitor for signs of new infection or sepsis during course. \-- Additional antibiotic coverage (2-week course) for acute episodes of sacral ulcer cellulitis, myositis, as warranted until wound closure. \-- Supportive care for dementia and Parkinson's; continue chronic medications. \-- Monitor labs and adjust antibiotics per culture results and sensitivities as required. Isolation Precautions: Standard Plan discussed with: Other Dietary Evaluation Review Recommendations by RD: Dietary education by RD, Decrease Calorie Intake Comments: 1) Initiate Ensure High Protein qd 2) Add cardiac restriction to diet. Encourage optimal PO intake 3) Continue vitamin C and zinc sulfate supplementation 4) Follow-up with cardiology 4) Continue to monitor I&O, labs, and skin integrity Expected Outcomes/Goals: 1) appetite and labs to improve 2) wounds to improve 3) f/u in 3-5 days LIZ COTTO MD Feb 28, 2025 19:44
--- NOTE | 2025-02-28 19:50 | DVHPN2 ---
Consult Progress Note Date Seen: Feb 27, 2025 Subjective Patient reports: Other (needing frequent wound vac bandage to keep it on , patient has sitter . unable tot olerate MRI ) Objective vital signs Vital Sign Date Time Temp Pulse Resp B/P (MAP) Pulse Ox O2 Delivery O2 Flow Rate FiO2 02/28/25 19:01 100 Nasal Cannula 1.0 02/28/25 19:01 24 02/28/25 17:42 98.7 69 17 95/45 (62) 98.7 Total Intake and Output 02/27/25 02/27/25 02/28/25 15:00 23:00 07:00 Intake Total 50 ml 325 ml 350 ml Output Total 550 ml Balance 50 ml 325 ml -200 ml medications Current Medications Medications Dose Ordered Sig/Carmelita Route Start Time Stop Time Status Last Admin Dose Admin Nitroglycerin 0.4 mg Q5MINP PRN SL 02/23/25 01:00 Morphine Sulfate 2 mg Q30M PRN IV 02/23/25 01:00 Ceftazidime/ Dextrose 1 gm/ Sodium Chloride 50 ml @ 50 mls/hr Q8HR IV 02/23/25 10:00 02/28/25 14:00 50 MLS/HR Ascorbic Acid 500 mg BID PO 02/23/25 10:00 02/28/25 10:00 500 MG Zinc Sulfate 220 mg DAILY PO 02/23/25 10:00 02/28/25 10:00 220 MG Carbidopa/Levodopa 1 tab TID PO 02/23/25 06:00 02/28/25 14:00 1 TAB Pantoprazole Sodium 40 mg DAILY PO 02/23/25 10:00 02/28/25 10:00 40 MG Saccharomyces Boulardii 250 mg BID PO 02/23/25 10:00 02/28/25 10:00 250 MG Trazodone HCl 100 mg HS PO 02/23/25 22:00 02/27/25 22:24 100 MG Enoxaparin Sodium 40 mg DAILY SC 02/23/25 10:00 02/28/25 10:00 40 MG Clopidogrel Bisulfate 75 mg DAILY PO 02/23/25 10:00 02/28/25 10:00 75 MG Lisinopril 20 mg DAILY PO 02/23/25 10:00 02/28/25 10:00 20 MG Albuterol 2.5 mg Q4HR PRN NEB 02/23/25 01:45 Atorvastatin Calcium 40 mg DAILY@DINNER PO 02/23/25 17:30 02/28/25 18:07 40 MG Citalopram Hydrobromide 20 mg DAILY PO 02/23/25 10:00 02/28/25 10:00 20 MG Haloperidol Lactate 1 mg Q6HR PRN IM 02/23/25 01:45 Levothyroxine Sodium 75 mcg QAM PO 02/23/25 07:00 02/28/25 06:00 75 MCG Potassium Chloride/Sodium Chloride 1,000 ml @ 50 mls/hr Q20H IV 02/27/25 19:30 02/28/25 15:39 50 MLS/HR Enteral Nutritional Formula 240 ml QID PO 02/27/25 22:00 02/28/25 18:00 240 ML Physical Exam: General: NAD Neck: Supple. No masses. HEENT: PERRL. Normal lids and conjunctiva. Moist mucous membranes. Oropharynx without lesions, exudates or excessive erythema. Normal appearance of the external aspects of the nose and ears. Heart: Regular rhythm, normal rate. No murmur. No lower extremity edema. Lungs: Normal respiratory effort. Clear to auscultation bilaterally. No wheezes. No crackles. Abdomen: Soft. Non-tender. Non-distended. No masses or abdominal hernia. Msk: No digital cyanosis. Normal strength and tone in all 4 limbs. Skin: Large sacral decubitus ulcer with necrotic tissue, purulent discharge, foul odor, erythematous borders. Status post recent debridement with exposed bone. Neuro: Alertness limited by severe dementia. Bradykinesia, hand tremors noted. Psych: Agitated and argumentative, severe dementia. Oriented to self only. laboratory and microbiology Laboratory Tests 02/28/25 05:46 02/27/25 05:57 Test 02/28/25 05:46 Range/Units Serum Glucose 75 74-106 mg/dL Problem List/Assessment/Plan Problems(with codes): (1) DIARRHEA (2) Bronchial asthma (3) Dehydration (4) Acute colitis (5) Parkinson's disease (6) Sacral decubitus ulcer, stage IV Problem List/Assessment/Plan ID Problem List: \-- Chronic sacral decubitus ulcer with necrotic tissue \-- Chronic osteomyelitis (suspected, sacrum) \-- Sacral ulcer cellulitis/myositis \-- Severe dementia \-- Parkinson's disease \-- Hypertension \-- Osteoarthritis \-- Bedbound >5 years \-- Right hip prosthesis Assessment This is an 79 y.o. female with a past medical history of hypertension, Parkinson's disease, osteoarthritis, severe dementia (bedridden for last five years), and right hip prosthesis, who presents with a chronic sacral decubitus ulcer with necrotic tissue and purulent discharge. The ulcer has been previously debrided and treated with both IV and oral antibiotics in late September, but has subsequently worsened. The patient is unable to participate in wound care due to advanced dementia and is agitated and uncooperative with nursing staff. On arrival, noted sacral ulcer with necrotic tissue, foul odor, prolonged purulent discharge, and surrounding erythematous borders. Lab results demonstrate WBC 6.5, hemoglobin 2.3, platelets 112, sodium 138, BUN 27.3, creatinine 0.44. Chest X-ray showed reticular opacities in both lungs, fibrosis vs atypical infection or pulmonary edema, and small consolidation at the left medial lung base. Status post operative debridement (by Dr. Bruce and Dr. Avalos), with debridement of a 4 x 4 cm area extending through muscle with exposed bone. Patient has chronic infection, likely to improve with chronic wound vacuum- assisted closure (VAC) and IV antibiotics for 6 weeks to cover for possible osteomyelitis. Blood cultures show Staphylococcus hominis (likely skin lurdes contamination), but vancomycin will provide coverage. Methicillin-resistant Staphylococcus aureus (MRSA) is negative. Urine culture is negative. 02/26: tolerating wound vac however appears to be getting soiled 02/27: doing well s/p surgery , wound vac recommended to be continued Plan: - defer to [facility] for wound vac recommendations at [facility] - recommend 6 weeks of vancomycin and cefepime - stop ceftazodine \-- Continue wound care at residential facility. \-- Start and continue IV vancomycin and ceftriaxone for 6 weeks empirically to cover for sacral osteomyelitis. \-- Proceed with PICC line placement for long-term IV antibiotics. \-- Continue wound VAC therapy until healing/closure. \-- Monitor for signs of new infection or sepsis during course. \-- Additional antibiotic coverage (2-week course) for acute episodes of sacral ulcer cellulitis, myositis, as warranted until wound closure. \-- Supportive care for dementia and Parkinson's; continue chronic medications. \-- Monitor labs and adjust antibiotics per culture results and sensitivities as required. Isolation Precautions: Standard Plan discussed with: Other Dietary Evaluation Review Recommendations by RD: Dietary education by RD, Decrease Calorie Intake Comments: 1) Initiate Ensure High Protein qd 2) Add cardiac restriction to diet. Encourage optimal PO intake 3) Continue vitamin C and zinc sulfate supplementation 4) Follow-up with cardiology 4) Continue to monitor I&O, labs, and skin integrity Expected Outcomes/Goals: 1) appetite and labs to improve 2) wounds to improve 3) f/u in 3-5 days LIZ COTTO MD Feb 28, 2025 19:50
--- NOTE | 2025-02-28 19:56 | DVHPN2 ---
Consult Progress Note Date Seen: Feb 28, 2025 Subjective Patient reports: Other (patient is needing consent for picclien placement by 2 doctors , patient is coherent enough and not pulling out lines ) Objective vital signs Vital Sign Date Time Temp Pulse Resp B/P (MAP) Pulse Ox O2 Delivery O2 Flow Rate FiO2 02/28/25 19:01 100 Nasal Cannula 1.0 02/28/25 19:01 24 02/28/25 17:42 98.7 69 17 95/45 (62) 98.7 Total Intake and Output 02/27/25 02/27/25 02/28/25 15:00 23:00 07:00 Intake Total 50 ml 325 ml 350 ml Output Total 550 ml Balance 50 ml 325 ml -200 ml medications Current Medications Medications Dose Ordered Sig/Carmelita Route Start Time Stop Time Status Last Admin Dose Admin Nitroglycerin 0.4 mg Q5MINP PRN SL 02/23/25 01:00 Morphine Sulfate 2 mg Q30M PRN IV 02/23/25 01:00 Ceftazidime/ Dextrose 1 gm/ Sodium Chloride 50 ml @ 50 mls/hr Q8HR IV 02/23/25 10:00 02/28/25 14:00 50 MLS/HR Ascorbic Acid 500 mg BID PO 02/23/25 10:00 02/28/25 10:00 500 MG Zinc Sulfate 220 mg DAILY PO 02/23/25 10:00 02/28/25 10:00 220 MG Carbidopa/Levodopa 1 tab TID PO 02/23/25 06:00 02/28/25 14:00 1 TAB Pantoprazole Sodium 40 mg DAILY PO 02/23/25 10:00 02/28/25 10:00 40 MG Saccharomyces Boulardii 250 mg BID PO 02/23/25 10:00 02/28/25 10:00 250 MG Trazodone HCl 100 mg HS PO 02/23/25 22:00 02/27/25 22:24 100 MG Enoxaparin Sodium 40 mg DAILY SC 02/23/25 10:00 02/28/25 10:00 40 MG Clopidogrel Bisulfate 75 mg DAILY PO 02/23/25 10:00 02/28/25 10:00 75 MG Lisinopril 20 mg DAILY PO 02/23/25 10:00 02/28/25 10:00 20 MG Albuterol 2.5 mg Q4HR PRN NEB 02/23/25 01:45 Atorvastatin Calcium 40 mg DAILY@DINNER PO 02/23/25 17:30 02/28/25 18:07 40 MG Citalopram Hydrobromide 20 mg DAILY PO 02/23/25 10:00 02/28/25 10:00 20 MG Haloperidol Lactate 1 mg Q6HR PRN IM 02/23/25 01:45 Levothyroxine Sodium 75 mcg QAM PO 02/23/25 07:00 02/28/25 06:00 75 MCG Potassium Chloride/Sodium Chloride 1,000 ml @ 50 mls/hr Q20H IV 02/27/25 19:30 02/28/25 15:39 50 MLS/HR Enteral Nutritional Formula 240 ml QID PO 02/27/25 22:00 02/28/25 18:00 240 ML Physical Exam: General: NAD Neck: Supple. No masses. HEENT: PERRL. Normal lids and conjunctiva. Moist mucous membranes. Oropharynx without lesions, exudates or excessive erythema. Normal appearance of the external aspects of the nose and ears. Heart: Regular rhythm, normal rate. No murmur. No lower extremity edema. Lungs: Normal respiratory effort. Clear to auscultation bilaterally. No wheezes. No crackles. Abdomen: Soft. Non-tender. Non-distended. No masses or abdominal hernia. Msk: No digital cyanosis. Normal strength and tone in all 4 limbs. Skin: Large sacral decubitus ulcer with necrotic tissue, purulent discharge, foul odor, erythematous borders. Status post recent debridement with exposed bone. Neuro: Alertness limited by severe dementia. Bradykinesia, hand tremors noted. Psych: Agitated and argumentative, severe dementia. Oriented to self only. laboratory and microbiology Laboratory Tests 02/28/25 05:46 02/27/25 05:57 Test 02/28/25 05:46 Range/Units Serum Glucose 75 74-106 mg/dL Problem List/Assessment/Plan Problems(with codes): (1) Osteomyelitis (2) Sacral decubitus ulcer, stage IV (3) Parkinson's disease (4) Acute colitis (5) Dehydration (6) Bronchial asthma Problem List/Assessment/Plan ID Problem List: \-- Chronic sacral decubitus ulcer with necrotic tissue \-- Chronic osteomyelitis (suspected, sacrum) \-- Sacral ulcer cellulitis/myositis \-- Severe dementia \-- Parkinson's disease \-- Hypertension \-- Osteoarthritis \-- Bedbound >5 years \-- Right hip prosthesis Assessment This is an 79 y.o. female with a past medical history of hypertension, Parkinson's disease, osteoarthritis, severe dementia (bedridden for last five years), and right hip prosthesis, who presents with a chronic sacral decubitus ulcer with necrotic tissue and purulent discharge. The ulcer has been previously debrided and treated with both IV and oral antibiotics in late September, but has subsequently worsened. The patient is unable to participate in wound care due to advanced dementia and is agitated and uncooperative with nursing staff. On arrival, noted sacral ulcer with necrotic tissue, foul odor, prolonged purulent discharge, and surrounding erythematous borders. Lab results demonstrate WBC 6.5, hemoglobin 2.3, platelets 112, sodium 138, BUN 27.3, creatinine 0.44. Chest X-ray showed reticular opacities in both lungs, fibrosis vs atypical infection or pulmonary edema, and small consolidation at the left medial lung base. Status post operative debridement (by Dr. Bruce and Dr. Avalos), with debridement of a 4 x 4 cm area extending through muscle with exposed bone. Patient has chronic infection, likely to improve with chronic wound vacuum- assisted closure (VAC) and IV antibiotics for 6 weeks to cover for possible osteomyelitis. Blood cultures show Staphylococcus hominis (likely skin lurdes contamination), but vancomycin will provide coverage. Methicillin-resistant Staphylococcus aureus (MRSA) is negative. Urine culture is negative. 02/26: tolerating wound vac however appears to be getting soiled 02/27: doing well s/p surgery , wound vac recommended to be continued 02/28: need consent for piccline placement from 2 doctors as patient doesnt have family Plan: - defer to general surgery for wound vac orders as outpatient and management -IV vancomycin 1.5g every 12 hrs, dose adjust per pharmacy, goal trough 15-20 -IV Cefepime 2g every 12 hrs -weekly cmp, cbc, sed, crp, vancomycin trough. fax results to [id number] continue until 04/08/25, then remove picc line - fu in ID clinic in 6 weeks \-- Continue wound care at [facility] facility. \-- Start and continue IV vancomycin and ceftriaxone for 6 weeks empirically to cover for sacral osteomyelitis. \-- Proceed with PICC line placement for long-term IV antibiotics. \-- Continue wound VAC therapy until healing/closure. \-- Monitor for signs of new infection or sepsis during course. \-- Additional antibiotic coverage (2-week course) for acute episodes of sacral ulcer cellulitis, myositis, as warranted until wound closure. \-- Supportive care for dementia and Parkinson's; continue chronic medications. \-- Monitor labs and adjust antibiotics per culture results and sensitivities as required. Isolation Precautions: Standard Plan discussed with: Other Dietary Evaluation Review Recommendations by RD: Dietary education by RD, Decrease Calorie Intake Comments: 1) Initiate Ensure High Protein qd 2) Add cardiac restriction to diet. Encourage optimal PO intake 3) Continue vitamin C and zinc sulfate supplementation 4) Follow-up with cardiology 4) Continue to monitor I&O, labs, and skin integrity Expected Outcomes/Goals: 1) appetite and labs to improve 2) wounds to improve 3) f/u in 3-5 days LIZ COTTO MD Feb 28, 2025 19:56
[2025-02-28] MEDS ORDERED: VANCOMYCIN PER PHARMACY 0 MG IV SCH (20:00)
[2025-02-28] MEDS: VANCOMYCIN 1GM/250ML KIT 250 ML IV SCH (21:30)
[2025-02-28] MEDS: CEFEPIME 2GM/50ML NS 50 ML IV SCH (23:04)
[2025-03-01] VITALS (11 sets, daily range): BP systolic 95–127; BP diastolic 39–61; PULSE 60–67; RESP 16–17; TEMP 97.5–98.3; O2SAT 94–99
[2025-03-01 10:58] LABS: INR 1.08 (0.9-1.15); Partial Thromboplastin Time 30.9 SEC (24.5-34.5); Prothrombin Time 11.4 sec (9.3-11.8)
[2025-03-01] MEDS: HYDROcodone-ACET 10/325MG TAB PO PRN (16:28)
[2025-03-01] MEDS: LIDOCAINE 1% (LOCAL ANESTH.) PF 5ml SDV ID ONE (18:45)
--- NOTE | 2025-03-01 21:58 | DVHPN2 ---
Progress Note - Dictate Medical Necessity Reason Pt with a Central, PICC or Fol: No Subjective The patient is seen on postop day 4 of her receiving uneventful excisional surgical debridement of decubitus ulcer by Dr. Arturo Del Real No delayed postop complications Her preop wound cultures from outside lab shows growth of Proteus sensitive to cephalosporins Her antibiotic coverage is revised to IV cefepime and vancomycin Case is discussed with Dr. Abdirahman mcintyre Patient has received PICC line insertion as of this afternoon No postprocedure complications were noted Overnight events are reviewed through medical chart and case discussion with patient's assigned RN while making rounds on patient on the day of service vital signs Vital Sign Date Time Temp Pulse Resp B/P (MAP) Pulse Ox O2 Delivery O2 Flow Rate FiO2 03/01/25 21:00 97.8 67 17 107/39 (61) 97 97.8 03/01/25 19:38 Nasal Cannula* 1 24 Total Intake and Output 02/28/25 02/28/25 03/01/25 15:00 23:00 07:00 Intake Total 100 ml 1250 ml 300 ml Output Total 300 ml 550 ml Balance 100 ml 950 ml -250 ml medications Current Medications Medications Dose Ordered Sig/Carmelita Route Start Time Stop Time Status Last Admin Dose Admin Nitroglycerin 0.4 mg Q5MINP PRN SL 02/23/25 01:00 Morphine Sulfate 2 mg Q30M PRN IV 02/23/25 01:00 Ascorbic Acid 500 mg BID PO 02/23/25 10:00 03/01/25 10:23 500 MG Zinc Sulfate 220 mg DAILY PO 02/23/25 10:00 03/01/25 10:23 220 MG Carbidopa/Levodopa 1 tab TID PO 02/23/25 06:00 03/01/25 14:00 1 TAB Pantoprazole Sodium 40 mg DAILY PO 02/23/25 10:00 03/01/25 10:23 40 MG Saccharomyces Boulardii 250 mg BID PO 02/23/25 10:00 03/01/25 10:23 250 MG Trazodone HCl 100 mg HS PO 02/23/25 22:00 02/28/25 22:55 100 MG Enoxaparin Sodium 40 mg DAILY SC 02/23/25 10:00 03/01/25 10:23 40 MG Clopidogrel Bisulfate 75 mg DAILY PO 02/23/25 10:00 03/01/25 10:22 75 MG Lisinopril 20 mg DAILY PO 02/23/25 10:00 03/01/25 10:22 20 MG Albuterol 2.5 mg Q4HR PRN NEB 02/23/25 01:45 Atorvastatin Calcium 40 mg DAILY@DINNER PO 02/23/25 17:30 02/28/25 18:07 40 MG Citalopram Hydrobromide 20 mg DAILY PO 02/23/25 10:00 03/01/25 10:23 20 MG Haloperidol Lactate 1 mg Q6HR PRN IM 02/23/25 01:45 Levothyroxine Sodium 75 mcg QAM PO 02/23/25 07:00 03/01/25 05:12 75 MCG Potassium Chloride/Sodium Chloride 1,000 ml @ 50 mls/hr Q20H IV 02/27/25 19:30 03/01/25 11:30 50 MLS/HR Enteral Nutritional Formula 240 ml QID PO 02/27/25 22:00 03/01/25 21:31 240 ML Cefepime HCl 50 ml @ 12.5 mls/hr Q12HR IV 02/28/25 22:00 03/01/25 10:24 12.5 MLS/HR Vancomycin HCl 0 ml @ 0 mls/hr UD IV 02/28/25 20:00 Vancomycin HCl 250 ml @ 250 mls/hr Q12H IV 02/28/25 21:00 03/01/25 21:38 250 MLS/HR Acetaminophen/ Hydrocodone Bitart 1 tab Q4HP PRN PO 03/01/25 16:30 03/01/25 16:28 1 TAB Sodium Chloride 10 ml QSHIFT@10,22 IV 03/01/25 22:00 laboratory and microbiology Laboratory Tests 03/01/25 06:12 02/28/25 05:46 02/27/25 05:57 Test 02/28/25 05:46 Range/Units Serum Glucose 75 74-106 mg/dL Assessment/Plan Check CBC CMP Await for Wound cultures Requested ID consult from Dr. Abdirahman Cotto Continue IV Fortaz and vancomycin Dietary Evaluation Review Recommendations by RD: Dietary education by RD, Decrease Calorie Intake Comments: 1) Initiate Ensure High Protein qd 2) Add cardiac restriction to diet. Encourage optimal PO intake 3) Continue vitamin C and zinc sulfate supplementation 4) Follow-up with cardiology 4) Continue to monitor I&O, labs, and skin integrity Expected Outcomes/Goals: 1) appetite and labs to improve 2) wounds to improve 3) f/u in 3-5 days JASS COTTO MD Mar 01, 2025 21:58
[2025-03-01] MEDS: SODIUM CHLOR 0.9% PF (SALINE LOCK) 10ML VIAL/SYR IV SCH (21:59)
--- NOTE | 2025-03-01 23:32 | DVHPN2 ---
Consult Progress Note Date Seen: Mar 01, 2025 Subjective Patient reports: Other (working on getting piccline placement , toleratign antibiotics . AnO x 0 but able to follow simple commands , wound vac boarders appear clean ) Objective vital signs Vital Sign Date Time Temp Pulse Resp B/P (MAP) Pulse Ox O2 Delivery O2 Flow Rate FiO2 03/01/25 21:00 97.8 67 17 107/39 (61) 97 97.8 03/01/25 19:38 Nasal Cannula* 1 24 Total Intake and Output 02/28/25 02/28/25 03/01/25 15:00 23:00 07:00 Intake Total 100 ml 1250 ml 300 ml Output Total 300 ml 550 ml Balance 100 ml 950 ml -250 ml medications Current Medications Medications Dose Ordered Sig/Carmelita Route Start Time Stop Time Status Last Admin Dose Admin Nitroglycerin 0.4 mg Q5MINP PRN SL 02/23/25 01:00 Morphine Sulfate 2 mg Q30M PRN IV 02/23/25 01:00 Ascorbic Acid 500 mg BID PO 02/23/25 10:00 03/01/25 21:57 500 MG Zinc Sulfate 220 mg DAILY PO 02/23/25 10:00 03/01/25 10:23 220 MG Carbidopa/Levodopa 1 tab TID PO 02/23/25 06:00 03/01/25 21:57 1 TAB Pantoprazole Sodium 40 mg DAILY PO 02/23/25 10:00 03/01/25 10:23 40 MG Saccharomyces Boulardii 250 mg BID PO 02/23/25 10:00 03/01/25 21:57 250 MG Trazodone HCl 100 mg HS PO 02/23/25 22:00 03/01/25 21:57 100 MG Enoxaparin Sodium 40 mg DAILY SC 02/23/25 10:00 03/01/25 10:23 40 MG Clopidogrel Bisulfate 75 mg DAILY PO 02/23/25 10:00 03/01/25 10:22 75 MG Lisinopril 20 mg DAILY PO 02/23/25 10:00 03/01/25 10:22 20 MG Albuterol 2.5 mg Q4HR PRN NEB 02/23/25 01:45 Atorvastatin Calcium 40 mg DAILY@DINNER PO 02/23/25 17:30 02/28/25 18:07 40 MG Citalopram Hydrobromide 20 mg DAILY PO 02/23/25 10:00 03/01/25 10:23 20 MG Haloperidol Lactate 1 mg Q6HR PRN IM 02/23/25 01:45 Levothyroxine Sodium 75 mcg QAM PO 02/23/25 07:00 03/01/25 05:12 75 MCG Potassium Chloride/Sodium Chloride 1,000 ml @ 50 mls/hr Q20H IV 02/27/25 19:30 03/01/25 11:30 50 MLS/HR Enteral Nutritional Formula 240 ml QID PO 02/27/25 22:00 03/01/25 21:31 240 ML Cefepime HCl 50 ml @ 12.5 mls/hr Q12HR IV 02/28/25 22:00 03/01/25 21:58 12.5 MLS/HR Vancomycin HCl 0 ml @ 0 mls/hr UD IV 02/28/25 20:00 Vancomycin HCl 250 ml @ 250 mls/hr Q12H IV 02/28/25 21:00 03/01/25 21:38 250 MLS/HR Acetaminophen/ Hydrocodone Bitart 1 tab Q4HP PRN PO 03/01/25 16:30 03/01/25 21:57 1 TAB Sodium Chloride 10 ml QSHIFT@10,22 IV 03/01/25 22:00 03/01/25 21:59 10 ML Physical Exam: General: NAD Neck: Supple. No masses. HEENT: PERRL. Normal lids and conjunctiva. Moist mucous membranes. Oropharynx without lesions, exudates or excessive erythema. Normal appearance of the external aspects of the nose and ears. Heart: Regular rhythm, normal rate. No murmur. No lower extremity edema. Lungs: Normal respiratory effort. Clear to auscultation bilaterally. No wheezes. No crackles. Abdomen: Soft. Non-tender. Non-distended. No masses or abdominal hernia. Msk: No digital cyanosis. Normal strength and tone in all 4 limbs. Skin: Large sacral decubitus ulcer with necrotic tissue, purulent discharge, foul odor, erythematous borders. Status post recent debridement with exposed bone. Neuro: Alertness limited by severe dementia. Bradykinesia, hand tremors noted. Psych: Agitated and argumentative, severe dementia. Oriented to self only. laboratory and microbiology Laboratory Tests 03/01/25 06:12 02/28/25 05:46 02/27/25 05:57 Test 02/28/25 05:46 Range/Units Serum Glucose 75 74-106 mg/dL Problem List/Assessment/Plan Problems(with codes): (1) Sacral decubitus ulcer, stage IV (2) Parkinson's disease (3) Acute colitis (4) Dehydration (5) Bronchial asthma Problem List/Assessment/Plan ID Problem List: \-- Chronic sacral decubitus ulcer with necrotic tissue \-- Chronic osteomyelitis (suspected, sacrum) \-- Sacral ulcer cellulitis/myositis \-- Severe dementia \-- Parkinson's disease \-- Hypertension \-- Osteoarthritis \-- Bedbound >5 years \-- Right hip prosthesis Assessment This is an 79 y.o. female with a past medical history of hypertension, Parkinson's disease, osteoarthritis, severe dementia (bedridden for last five years), and right hip prosthesis, who presents with a chronic sacral decubitus ulcer with necrotic tissue and purulent discharge. The ulcer has been previously debrided and treated with both IV and oral antibiotics in late September, but has subsequently worsened. The patient is unable to participate in wound care due to advanced dementia and is agitated and uncooperative with nursing staff. On arrival, noted sacral ulcer with necrotic tissue, foul odor, prolonged purulent discharge, and surrounding erythematous borders. Lab results demonstrate WBC 6.5, hemoglobin 2.3, platelets 112, sodium 138, BUN 27.3, creatinine 0.44. Chest X-ray showed reticular opacities in both lungs, fibrosis vs atypical infection or pulmonary edema, and small consolidation at the left medial lung base. Status post operative debridement (by Dr. Bruce and Dr. Avalos), with debridement of a 4 x 4 cm area extending through muscle with exposed bone. Patient has chronic infection, likely to improve with chronic wound vacuum- assisted closure (VAC) and IV antibiotics for 6 weeks to cover for possible osteomyelitis. Blood cultures show Staphylococcus hominis (likely skin lurdes contamination), but vancomycin will provide coverage. Methicillin-resistant Staphylococcus aureus (MRSA) is negative. Urine culture is negative. 02/26: tolerating wound vac however appears to be getting soiled 02/27: doing well s/p surgery , wound vac recommended to be continued 02/28: need consent for piccline placement from 2 doctors as patient doesnt have family 03/01:awaiting wound vac instructions , piccline placement before patient can go back to SNF Plan: - defer to general surgery for wound vac orders as outpatient and management -IV vancomycin 1.5g every 12 hrs, dose adjust per pharmacy, goal trough 15-20 -IV Cefepime 2g every 12 hrs -weekly cmp, cbc, sed, crp, vancomycin trough. fax results to [id number] continue until 04/08/25, then remove picc line - fu in ID clinic in 6 weeks \-- [facility]. \-- Start and continue IV vancomycin and ceftriaxone for 6 weeks empirically to cover for sacral osteomyelitis. \-- Proceed with PICC line placement for long-term IV antibiotics. \-- Continue wound VAC therapy until healing/closure. \-- Monitor for signs of new infection or sepsis during course. \-- Additional antibiotic coverage (2-week course) for acute episodes of sacral ulcer cellulitis, myositis, as warranted until wound closure. \-- Supportive care for dementia and Parkinson's; continue chronic medications. \-- Monitor labs and adjust antibiotics per culture results and sensitivities as required. Isolation Precautions: Standard Plan discussed with: Other Dietary Evaluation Review Recommendations by RD: Dietary education by RD, Decrease Calorie Intake Comments: 1) Initiate Ensure High Protein qd 2) Add cardiac restriction to diet. Encourage optimal PO intake 3) Continue vitamin C and zinc sulfate supplementation 4) Follow-up with cardiology 4) Continue to monitor I&O, labs, and skin integrity Expected Outcomes/Goals: 1) appetite and labs to improve 2) wounds to improve 3) f/u in 3-5 days LIZ COTTO MD Mar 01, 2025 23:32
[2025-03-02] VITALS (10 sets, daily range): BP systolic 91–132; BP diastolic 36–96; PULSE 52–61; RESP 15–18; TEMP 96.6–98.3; O2SAT 93–100
[2025-03-02] MEDS: VANCOMYCIN 750MG KIT 100 ML IV SCH (21:07)
--- NOTE | 2025-03-02 22:14 | DVHPN2 ---
Progress Note - Dictate Date Seen: Mar 02, 2025 Medical Necessity Reason Pt with a Central, PICC or Fol: No Subjective The patient is seen on postop day 5 of her receiving uneventful excisional surgical debridement of decubitus ulcer by Dr. Arturo Del Real No delayed postop complications Her preop wound cultures from outside lab shows growth of Proteus sensitive to cephalosporins Her antibiotic coverage is revised to IV cefepime and vancomycin Case is discussed with Dr. Abdirahman mcintyre Patient to receive home IV antibiotics. No post PICC line procedure related complications noted Overnight events are reviewed through medical chart and case discussion with patient's assigned RN while making rounds on patient on the day of service vital signs Vital Sign Date Time Temp Pulse Resp B/P (MAP) Pulse Ox O2 Delivery O2 Flow Rate FiO2 03/02/25 19:20 100 Nasal Cannula 2.0 03/02/25 19:20 28 03/02/25 17:03 96.6 52 17 91/47 (62) 96.6 Total Intake and Output 03/01/25 03/01/25 03/02/25 15:00 23:00 07:00 Intake Total 300 ml 540 ml 240 ml Output Total 400 ml 300 ml Balance 300 ml 140 ml -60 ml medications Current Medications Medications Dose Ordered Sig/Carmelita Route Start Time Stop Time Status Last Admin Dose Admin Nitroglycerin 0.4 mg Q5MINP PRN SL 02/23/25 01:00 Morphine Sulfate 2 mg Q30M PRN IV 02/23/25 01:00 Ascorbic Acid 500 mg BID PO 02/23/25 10:00 03/01/25 21:57 500 MG Zinc Sulfate 220 mg DAILY PO 02/23/25 10:00 03/01/25 10:23 220 MG Carbidopa/Levodopa 1 tab TID PO 02/23/25 06:00 03/02/25 21:33 1 TAB Pantoprazole Sodium 40 mg DAILY PO 02/23/25 10:00 03/01/25 10:23 40 MG Saccharomyces Boulardii 250 mg BID PO 02/23/25 10:00 03/02/25 21:33 250 MG Trazodone HCl 100 mg HS PO 02/23/25 22:00 03/02/25 21:33 100 MG Enoxaparin Sodium 40 mg DAILY SC 02/23/25 10:00 03/01/25 10:23 40 MG Clopidogrel Bisulfate 75 mg DAILY PO 02/23/25 10:00 03/01/25 10:22 75 MG Lisinopril 20 mg DAILY PO 02/23/25 10:00 03/01/25 10:22 20 MG Albuterol 2.5 mg Q4HR PRN NEB 02/23/25 01:45 Atorvastatin Calcium 40 mg DAILY@DINNER PO 02/23/25 17:30 02/28/25 18:07 40 MG Citalopram Hydrobromide 20 mg DAILY PO 02/23/25 10:00 03/01/25 10:23 20 MG Haloperidol Lactate 1 mg Q6HR PRN IM 02/23/25 01:45 Levothyroxine Sodium 75 mcg QAM PO 02/23/25 07:00 03/02/25 06:05 75 MCG Potassium Chloride/Sodium Chloride 1,000 ml @ 50 mls/hr Q20H IV 02/27/25 19:30 03/02/25 14:38 50 MLS/HR Enteral Nutritional Formula 240 ml QID PO 02/27/25 22:00 03/02/25 18:00 240 ML Cefepime HCl 50 ml @ 12.5 mls/hr Q12HR IV 02/28/25 22:00 03/02/25 14:40 12.5 MLS/HR Vancomycin HCl 0 ml @ 0 mls/hr UD IV 02/28/25 20:00 Acetaminophen/ Hydrocodone Bitart 1 tab Q4HP PRN PO 03/01/25 16:30 03/02/25 21:33 1 TAB Sodium Chloride 10 ml QSHIFT@10,22 IV 03/01/25 22:00 03/02/25 10:00 10 ML Vancomycin HCl 100 ml @ 100 mls/hr Q12H IV 03/02/25 21:00 03/02/25 21:07 100 MLS/HR laboratory and microbiology Laboratory Tests 03/02/25 09:53 02/28/25 05:46 02/27/25 05:57 Test 02/28/25 05:46 Range/Units Serum Glucose 75 74-106 mg/dL Assessment/Plan Continue Hospitalization telemetry bed Continue IV cefepime and vancomycin Refer patient to lining caser To transfer patient to SNF Dietary Evaluation Review Recommendations by RD: Dietary education by RD, Decrease Calorie Intake Comments: 1) Initiate Ensure High Protein qd 2) Add cardiac restriction to diet. Encourage optimal PO intake 3) Continue vitamin C and zinc sulfate supplementation 4) Follow-up with cardiology 4) Continue to monitor I&O, labs, and skin integrity Expected Outcomes/Goals: 1) appetite and labs to improve 2) wounds to improve 3) f/u in 3-5 days JASS COTTO MD Mar 02, 2025 22:14
[2025-03-03] VITALS (7 sets, daily range): BP systolic 96–112; BP diastolic 41–53; PULSE 49–81; RESP 16–18; TEMP 97.6–98.6; O2SAT 96–100
[2025-03-03 05:39] LABS: Hematocrit 24.7 % (36.0-46.0); Hemoglobin 8.2 g/dL (12.2-16.2); Mean Corpuscular Hemoglobin 29.5 pg (28.0-32.0); Mean Corpuscular Volume 88.4 fL (80.0-100.0); Nucleated Red Blood Cells % 0.0 %
--- NOTE | 2025-03-03 08:16 | DVHPN2 ---
Progress Note - Dictate Date Seen: Mar 03, 2025 Medical Necessity Reason Pt with a Central, PICC or Fol: No Subjective The patient is seen on postop day 5 of her receiving uneventful excisional surgical debridement of decubitus ulcer by Dr. Arturo Del Real No delayed postop complications Her preop wound cultures from outside lab shows growth of Proteus sensitive to cephalosporins Her antibiotic coverage is revised to IV cefepime and vancomycin Case is discussed with Dr. Abdirahman mcintyre Patient to receive home IV antibiotics. No post PICC line procedure related complications noted Overnight events are reviewed through medical chart and case discussion with patient's assigned RN while making rounds on patient on the day of service vital signs Vital Sign Date Time Temp Pulse Resp B/P (MAP) Pulse Ox O2 Delivery O2 Flow Rate FiO2 03/03/25 05:00 97.6 52 16 103/45 (64) 100 97.6 03/02/25 20:00 Nasal Cannula* 2 28 Total Intake and Output 03/02/25 03/02/25 03/03/25 15:00 23:00 07:00 Intake Total 250 ml 250 ml Output Total 350 ml 225 ml Balance -100 ml 25 ml medications Current Medications Medications Dose Ordered Sig/Carmelita Route Start Time Stop Time Status Last Admin Dose Admin Nitroglycerin 0.4 mg Q5MINP PRN SL 02/23/25 01:00 Morphine Sulfate 2 mg Q30M PRN IV 02/23/25 01:00 Ascorbic Acid 500 mg BID PO 02/23/25 10:00 03/02/25 22:24 500 MG Zinc Sulfate 220 mg DAILY PO 02/23/25 10:00 03/01/25 10:23 220 MG Carbidopa/Levodopa 1 tab TID PO 02/23/25 06:00 03/03/25 05:50 1 TAB Pantoprazole Sodium 40 mg DAILY PO 02/23/25 10:00 03/01/25 10:23 40 MG Saccharomyces Boulardii 250 mg BID PO 02/23/25 10:00 03/02/25 21:33 250 MG Trazodone HCl 100 mg HS PO 02/23/25 22:00 03/02/25 21:33 100 MG Enoxaparin Sodium 40 mg DAILY SC 02/23/25 10:00 03/01/25 10:23 40 MG Clopidogrel Bisulfate 75 mg DAILY PO 02/23/25 10:00 03/01/25 10:22 75 MG Lisinopril 20 mg DAILY PO 02/23/25 10:00 03/01/25 10:22 20 MG Albuterol 2.5 mg Q4HR PRN NEB 02/23/25 01:45 Cancel Atorvastatin Calcium 40 mg DAILY@DINNER PO 02/23/25 17:30 02/28/25 18:07 40 MG Citalopram Hydrobromide 20 mg DAILY PO 02/23/25 10:00 03/01/25 10:23 20 MG Haloperidol Lactate 1 mg Q6HR PRN IM 02/23/25 01:45 Levothyroxine Sodium 75 mcg QAM PO 02/23/25 07:00 03/03/25 05:50 75 MCG Potassium Chloride/Sodium Chloride 1,000 ml @ 50 mls/hr Q20H IV 02/27/25 19:30 03/02/25 14:38 50 MLS/HR Enteral Nutritional Formula 240 ml QID PO 02/27/25 22:00 03/03/25 05:51 240 ML Cefepime HCl 50 ml @ 12.5 mls/hr Q12HR IV 02/28/25 22:00 03/02/25 22:25 12.5 MLS/HR Vancomycin HCl 0 ml @ 0 mls/hr UD IV 02/28/25 20:00 Acetaminophen/ Hydrocodone Bitart 1 tab Q4HP PRN PO 03/01/25 16:30 03/02/25 21:33 1 TAB Sodium Chloride 10 ml QSHIFT@10,22 IV 03/01/25 22:00 03/02/25 22:16 10 ML Vancomycin HCl 100 ml @ 100 mls/hr Q12H IV 03/02/25 21:00 03/02/25 21:07 100 MLS/HR laboratory and microbiology Laboratory Tests 03/03/25 04:41 02/28/25 05:46 Test 02/28/25 05:46 Range/Units Serum Glucose 75 74-106 mg/dL Assessment/Plan Continue Hospitalization telemetry bed Continue IV cefepime and vancomycin Refer patient to case reviewer To transfer patient to SNF with IV antibiotics and wound VAC Dietary Evaluation Review Recommendations by RD: Dietary education by RD, Decrease Calorie Intake Comments: 1) Initiate Ensure High Protein qd 2) Add cardiac restriction to diet. Encourage optimal PO intake 3) Continue vitamin C and zinc sulfate supplementation 4) Follow-up with cardiology 4) Continue to monitor I&O, labs, and skin integrity Expected Outcomes/Goals: 1) appetite and labs to improve 2) wounds to improve 3) f/u in 3-5 days JASS COTTO MD Mar 03, 2025 08:16
--- NOTE | 2025-03-03 16:44 | DVHPN2 ---
Consult Progress Note Date Seen: Mar 02, 2025 Subjective Patient reports: Other (piccline in place and tolerating antibiotics ) Objective vital signs Vital Sign Date Time Temp Pulse Resp B/P (MAP) Pulse Ox O2 Delivery O2 Flow Rate FiO2 03/03/25 13:00 98.6 55 17 103/53 (70) 100 98.6 03/03/25 08:00 Nasal Cannula* 2 28 Total Intake and Output 03/02/25 03/02/25 03/03/25 15:00 23:00 07:00 Intake Total 250 ml 250 ml Output Total 350 ml 225 ml Balance -100 ml 25 ml medications Current Medications Medications Dose Ordered Sig/Carmelita Route Start Time Stop Time Status Last Admin Dose Admin Nitroglycerin 0.4 mg Q5MINP PRN SL 02/23/25 01:00 Morphine Sulfate 2 mg Q30M PRN IV 02/23/25 01:00 Ascorbic Acid 500 mg BID PO 02/23/25 10:00 03/03/25 09:59 500 MG Zinc Sulfate 220 mg DAILY PO 02/23/25 10:00 03/03/25 09:59 220 MG Carbidopa/Levodopa 1 tab TID PO 02/23/25 06:00 03/03/25 13:31 1 TAB Pantoprazole Sodium 40 mg DAILY PO 02/23/25 10:00 03/03/25 09:57 40 MG Saccharomyces Boulardii 250 mg BID PO 02/23/25 10:00 03/03/25 09:59 250 MG Trazodone HCl 100 mg HS PO 02/23/25 22:00 03/02/25 21:33 100 MG Enoxaparin Sodium 40 mg DAILY SC 02/23/25 10:00 03/03/25 09:56 40 MG Clopidogrel Bisulfate 75 mg DAILY PO 02/23/25 10:00 03/03/25 09:57 75 MG Lisinopril 20 mg DAILY PO 02/23/25 10:00 03/01/25 10:22 20 MG Albuterol 2.5 mg Q4HR PRN NEB 02/23/25 01:45 Cancel Atorvastatin Calcium 40 mg DAILY@DINNER PO 02/23/25 17:30 02/28/25 18:07 40 MG Citalopram Hydrobromide 20 mg DAILY PO 02/23/25 10:00 03/01/25 10:23 20 MG Haloperidol Lactate 1 mg Q6HR PRN IM 02/23/25 01:45 Levothyroxine Sodium 75 mcg QAM PO 02/23/25 07:00 03/03/25 05:50 75 MCG Potassium Chloride/Sodium Chloride 1,000 ml @ 50 mls/hr Q20H IV 02/27/25 19:30 03/02/25 14:38 50 MLS/HR Enteral Nutritional Formula 240 ml QID PO 02/27/25 22:00 03/03/25 12:00 240 ML Cefepime HCl 50 ml @ 12.5 mls/hr Q12HR IV 02/28/25 22:00 03/03/25 10:00 12.5 MLS/HR Vancomycin HCl 0 ml @ 0 mls/hr UD IV 02/28/25 20:00 Acetaminophen/ Hydrocodone Bitart 1 tab Q4HP PRN PO 03/01/25 16:30 03/03/25 13:31 1 TAB Sodium Chloride 10 ml QSHIFT@10,22 IV 03/01/25 22:00 03/03/25 10:00 10 ML Vancomycin HCl 100 ml @ 100 mls/hr Q12H IV 03/02/25 21:00 03/03/25 09:55 100 MLS/HR Physical Exam: General: NAD Neck: Supple. No masses. HEENT: PERRL. Normal lids and conjunctiva. Moist mucous membranes. Oropharynx without lesions, exudates or excessive erythema. Normal appearance of the external aspects of the nose and ears. Heart: Regular rhythm, normal rate. No murmur. No lower extremity edema. Lungs: Normal respiratory effort. Clear to auscultation bilaterally. No wheezes. No crackles. Abdomen: Soft. Non-tender. Non-distended. No masses or abdominal hernia. Msk: No digital cyanosis. Normal strength and tone in all 4 limbs. Skin: Large sacral decubitus ulcer with necrotic tissue, purulent discharge, foul odor, erythematous borders. Status post recent debridement with exposed bone. Neuro: Alertness limited by severe dementia. Bradykinesia, hand tremors noted. Psych: Agitated and argumentative, severe dementia. Oriented to self only. laboratory and microbiology Laboratory Tests 03/03/25 04:41 02/28/25 05:46 Test 02/28/25 05:46 Range/Units Serum Glucose 75 74-106 mg/dL Problem List/Assessment/Plan Problems(with codes): (1) Bronchial asthma (2) DIARRHEA (3) Dehydration (4) Acute colitis (5) Parkinson's disease (6) Sacral decubitus ulcer, stage IV Problem List/Assessment/Plan ID Problem List: \-- Chronic sacral decubitus ulcer with necrotic tissue \-- Chronic osteomyelitis (suspected, sacrum) \-- Sacral ulcer cellulitis/myositis \-- Severe dementia \-- Parkinson's disease \-- Hypertension \-- Osteoarthritis \-- Bedbound >5 years \-- Right hip prosthesis Assessment This is an 79 y.o. female with a past medical history of hypertension, Parkinson's disease, osteoarthritis, severe dementia (bedridden for last five years), and right hip prosthesis, who presents with a chronic sacral decubitus ulcer with necrotic tissue and purulent discharge. The ulcer has been previously debrided and treated with both IV and oral antibiotics in late September, but has subsequently worsened. The patient is unable to participate in wound care due to advanced dementia and is agitated and uncooperative with nursing staff. On arrival, noted sacral ulcer with necrotic tissue, foul odor, prolonged purulent discharge, and surrounding erythematous borders. Lab results demonstrate WBC 6.5, hemoglobin 2.3, platelets 112, sodium 138, BUN 27.3, creatinine 0.44. Chest X-ray showed reticular opacities in both lungs, fibrosis vs atypical infection or pulmonary edema, and small consolidation at the left medial lung base. Status post operative debridement (by Dr. Bruce and Dr. Avalos), with debridement of a 4 x 4 cm area extending through muscle with exposed bone. Patient has chronic infection, likely to improve with chronic wound vacuum- assisted closure (VAC) and IV antibiotics for 6 weeks to cover for possible osteomyelitis. Blood cultures show Staphylococcus hominis (likely skin lurdes contamination), but vancomycin will provide coverage. Methicillin-resistant Staphylococcus aureus (MRSA) is negative. Urine culture is negative. 02/26: tolerating wound vac however appears to be getting soiled 02/27: doing well s/p surgery , wound vac recommended to be continued 02/28: need consent for piccline placement from 2 doctors as patient doesnt have family 03/01:awaiting wound vac instructions , piccline placement before patient can go back to SNF 03/02: patient has a functional piccline Plan: - defer to general surgery for wound vac orders as outpatient and management -IV vancomycin 1.5g every 12 hrs, dose adjust per pharmacy, goal trough 15-20 -IV Cefepime 2g every 12 hrs -weekly cmp, cbc, sed, crp, vancomycin trough. fax results to [id number] continue until 04/08/25, then remove picc line - fu in ID clinic in 6 weeks \-- Continue [facility]. \-- Start and continue IV vancomycin and ceftriaxone for 6 weeks empirically to cover for sacral osteomyelitis. \-- Proceed with PICC line placement for long-term IV antibiotics. \-- Continue wound VAC therapy until healing/closure. \-- Monitor for signs of new infection or sepsis during course. \-- Additional antibiotic coverage (2-week course) for acute episodes of sacral ulcer cellulitis, myositis, as warranted until wound closure. \-- Supportive care for dementia and Parkinson's; continue chronic medications. \-- Monitor labs and adjust antibiotics per culture results and sensitivities as required. Isolation Precautions: Standard Plan discussed with: Other Dietary Evaluation Review Recommendations by RD: Dietary education by RD, Decrease Calorie Intake Comments: 1) Initiate Ensure High Protein qd 2) Add cardiac restriction to diet. Encourage optimal PO intake 3) Continue vitamin C and zinc sulfate supplementation 4) Follow-up with cardiology 4) Continue to monitor I&O, labs, and skin integrity Expected Outcomes/Goals: 1) appetite and labs to improve 2) wounds to improve 3) f/u in 3-5 days LIZ COTTO MD Mar 03, 2025 16:44
--- NOTE | 2025-03-03 16:44 | DVHPN2 ---
Consult Progress Note Date Seen: Mar 03, 2025 Subjective Patient reports: Other (patient is refusing MRI , toleratign wound vac ) Objective vital signs Vital Sign Date Time Temp Pulse Resp B/P (MAP) Pulse Ox O2 Delivery O2 Flow Rate FiO2 03/03/25 13:00 98.6 55 17 103/53 (70) 100 98.6 03/03/25 08:00 Nasal Cannula* 2 28 Total Intake and Output 03/02/25 03/02/25 03/03/25 15:00 23:00 07:00 Intake Total 250 ml 250 ml Output Total 350 ml 225 ml Balance -100 ml 25 ml medications Current Medications Medications Dose Ordered Sig/Carmelita Route Start Time Stop Time Status Last Admin Dose Admin Nitroglycerin 0.4 mg Q5MINP PRN SL 02/23/25 01:00 Morphine Sulfate 2 mg Q30M PRN IV 02/23/25 01:00 Ascorbic Acid 500 mg BID PO 02/23/25 10:00 03/03/25 09:59 500 MG Zinc Sulfate 220 mg DAILY PO 02/23/25 10:00 03/03/25 09:59 220 MG Carbidopa/Levodopa 1 tab TID PO 02/23/25 06:00 03/03/25 13:31 1 TAB Pantoprazole Sodium 40 mg DAILY PO 02/23/25 10:00 03/03/25 09:57 40 MG Saccharomyces Boulardii 250 mg BID PO 02/23/25 10:00 03/03/25 09:59 250 MG Trazodone HCl 100 mg HS PO 02/23/25 22:00 03/02/25 21:33 100 MG Enoxaparin Sodium 40 mg DAILY SC 02/23/25 10:00 03/03/25 09:56 40 MG Clopidogrel Bisulfate 75 mg DAILY PO 02/23/25 10:00 03/03/25 09:57 75 MG Lisinopril 20 mg DAILY PO 02/23/25 10:00 03/01/25 10:22 20 MG Albuterol 2.5 mg Q4HR PRN NEB 02/23/25 01:45 Cancel Atorvastatin Calcium 40 mg DAILY@DINNER PO 02/23/25 17:30 02/28/25 18:07 40 MG Citalopram Hydrobromide 20 mg DAILY PO 02/23/25 10:00 03/01/25 10:23 20 MG Haloperidol Lactate 1 mg Q6HR PRN IM 02/23/25 01:45 Levothyroxine Sodium 75 mcg QAM PO 02/23/25 07:00 03/03/25 05:50 75 MCG Potassium Chloride/Sodium Chloride 1,000 ml @ 50 mls/hr Q20H IV 02/27/25 19:30 03/02/25 14:38 50 MLS/HR Enteral Nutritional Formula 240 ml QID PO 02/27/25 22:00 03/03/25 12:00 240 ML Cefepime HCl 50 ml @ 12.5 mls/hr Q12HR IV 02/28/25 22:00 03/03/25 10:00 12.5 MLS/HR Vancomycin HCl 0 ml @ 0 mls/hr UD IV 02/28/25 20:00 Acetaminophen/ Hydrocodone Bitart 1 tab Q4HP PRN PO 03/01/25 16:30 03/03/25 13:31 1 TAB Sodium Chloride 10 ml QSHIFT@10,22 IV 03/01/25 22:00 03/03/25 10:00 10 ML Vancomycin HCl 100 ml @ 100 mls/hr Q12H IV 03/02/25 21:00 03/03/25 09:55 100 MLS/HR Physical Exam: General: NAD Neck: Supple. No masses. HEENT: PERRL. Normal lids and conjunctiva. Moist mucous membranes. Oropharynx without lesions, exudates or excessive erythema. Normal appearance of the external aspects of the nose and ears. Heart: Regular rhythm, normal rate. No murmur. No lower extremity edema. Lungs: Normal respiratory effort. Clear to auscultation bilaterally. No wheezes. No crackles. Abdomen: Soft. Non-tender. Non-distended. No masses or abdominal hernia. Msk: No digital cyanosis. Normal strength and tone in all 4 limbs. Skin: Large sacral decubitus ulcer with necrotic tissue, purulent discharge, foul odor, erythematous borders. Status post recent debridement with exposed bone. Neuro: Alertness limited by severe dementia. Bradykinesia, hand tremors noted. Psych: Agitated and argumentative, severe dementia. Oriented to self only. laboratory and microbiology Laboratory Tests 03/03/25 04:41 02/28/25 05:46 Test 8/21/25 05:46 Range/Units Serum Glucose 75 74-106 mg/dL Problem List/Assessment/Plan Problems(with codes): (1) Sacral decubitus ulcer, stage IV (2) Parkinson's disease (3) Acute colitis (4) Dehydration (5) Osteomyelitis (6) Severe protein-calorie malnutrition (7) DIARRHEA Problem List/Assessment/Plan ID Problem List: \-- Chronic sacral decubitus ulcer with necrotic tissue \-- Chronic osteomyelitis (suspected, sacrum) \-- Sacral ulcer cellulitis/myositis \-- Severe dementia \-- Parkinson's disease \-- Hypertension \-- Osteoarthritis \-- Bedbound >5 years \-- Right hip prosthesis Assessment This is an 79 y.o. female with a past medical history of hypertension, Parkinson's disease, osteoarthritis, severe dementia (bedridden for last five years), and right hip prosthesis, who presents with a chronic sacral decubitus ulcer with necrotic tissue and purulent discharge. The ulcer has been previously debrided and treated with both IV and oral antibiotics in late September, but has subsequently worsened. The patient is unable to participate in wound care due to advanced dementia and is agitated and uncooperative with nursing staff. On arrival, noted sacral ulcer with necrotic tissue, foul odor, prolonged purulent discharge, and surrounding erythematous borders. Lab results demonstrate WBC 6.5, hemoglobin 2.3, platelets 112, sodium 138, BUN 27.3, creatinine 0.44. Chest X-ray showed reticular opacities in both lungs, fibrosis vs atypical infection or pulmonary edema, and small consolidation at the left medial lung base. Status post operative debridement (by Dr. Bruce and Dr. Avalos), with debridement of a 4 x 4 cm area extending through muscle with exposed bone. Patient has chronic infection, likely to improve with chronic wound vacuum- assisted closure (VAC) and IV antibiotics for 6 weeks to cover for possible osteomyelitis. Blood cultures show Staphylococcus hominis (likely skin lurdes contamination), but vancomycin will provide coverage. Methicillin-resistant Staphylococcus aureus (MRSA) is negative. Urine culture is negative. 02/26: tolerating wound vac however appears to be getting soiled 02/27: doing well s/p surgery , wound vac recommended to be continued 02/28: need consent for piccline placement from 2 doctors as patient doesnt have family 03/01:awaiting wound vac instructions , piccline placement before patient can go back to SNF 03/02: patient has a functional piccline 03/03: cleared to continue at SNF , tolerating wound vac Plan: - defer to general surgery for wound vac orders as outpatient and management -IV vancomycin 1.5g every 12 hrs, dose adjust per pharmacy, goal trough 15-20 -IV Cefepime 2g every 12 hrs -weekly cmp, cbc, sed, crp, vancomycin trough. fax results to [id number] continue until 04/08/25, then remove picc line - fu in ID clinic in 6 weeks \-- Continue wound care at residential facility. \-- Start and continue IV vancomycin and ceftriaxone for 6 weeks empirically to cover for sacral osteomyelitis. \-- Proceed with PICC line placement for long-term IV antibiotics. \-- Continue wound VAC therapy until healing/closure. \-- Monitor for signs of new infection or sepsis during course. \-- Additional antibiotic coverage (2-week course) for acute episodes of sacral ulcer cellulitis, myositis, as warranted until wound closure. \-- Supportive care for dementia and Parkinson's; continue chronic medications. \-- Monitor labs and adjust antibiotics per culture results and sensitivities as required. Isolation Precautions: Standard Plan discussed with: Other Dietary Evaluation Review Recommendations by RD: Dietary education by RD, Decrease Calorie Intake Comments: 1) Initiate Ensure High Protein qd 2) Add cardiac restriction to diet. Encourage optimal PO intake 3) Continue vitamin C and zinc sulfate supplementation 4) Follow-up with cardiology 4) Continue to monitor I&O, labs, and skin integrity Expected Outcomes/Goals: 1) appetite and labs to improve 2) wounds to improve 3) f/u in 3-5 days LIZ COTTO MD Mar 03, 2025 16:44
[2025-03-04] VITALS (9 sets, daily range): BP systolic 95–118; BP diastolic 42–66; PULSE 53–76; RESP 14–18; TEMP 97.7–98.5; O2SAT 96–100
[2025-03-04 07:16] LABS: Hematocrit 25.7 % (36.0-46.0); Hemoglobin 8.7 g/dL (12.2-16.2); Mean Corpuscular Hemoglobin 29.2 pg (28.0-32.0); Mean Corpuscular Volume 86.6 fL (80.0-100.0); Nucleated Red Blood Cells % 0.1 %
--- NOTE | 2025-03-04 12:30 | DVHPN2 ---
Progress Note - Dictate Date Seen: Mar 04, 2025 Medical Necessity Reason Pt with a Central, PICC or Fol: No Subjective The patient is seen on postop day 5 of her receiving uneventful excisional surgical debridement of decubitus ulcer by Dr. Arturo Del Real No delayed postop complications Her preop wound cultures from outside lab shows growth of Proteus sensitive to cephalosporins Her antibiotic coverage is revised to IV cefepime and vancomycin Case is discussed with Dr. Abdirahman mcintyre Patient to receive home IV antibiotics. No post PICC line procedure related complications noted Overnight events are reviewed through medical chart and case discussion with patient's assigned RN while making rounds on patient on the day of service vital signs Vital Sign Date Time Temp Pulse Resp B/P (MAP) Pulse Ox O2 Delivery O2 Flow Rate FiO2 03/04/25 10:00 95/54 03/04/25 09:00 97.8 76 18 96 97.8 03/04/25 08:06 Nasal Cannula* 2 28 Total Intake and Output 03/03/25 03/03/25 03/04/25 15:00 23:00 07:00 Intake Total 500 ml 700 ml Output Total 150 ml 200 ml Balance 350 ml 500 ml medications Current Medications Medications Dose Ordered Sig/Carmelita Route Start Time Stop Time Status Last Admin Dose Admin Nitroglycerin 0.4 mg Q5MINP PRN SL 02/23/25 01:00 Ascorbic Acid 500 mg BID PO 02/23/25 10:00 03/04/25 10:22 500 MG Zinc Sulfate 220 mg DAILY PO 02/23/25 10:00 03/04/25 10:23 220 MG Carbidopa/Levodopa 1 tab TID PO 02/23/25 06:00 03/04/25 06:33 1 TAB Pantoprazole Sodium 40 mg DAILY PO 02/23/25 10:00 03/04/25 10:23 40 MG Saccharomyces Boulardii 250 mg BID PO 02/23/25 10:00 03/04/25 10:24 250 MG Trazodone HCl 100 mg HS PO 02/23/25 22:00 03/03/25 21:20 100 MG Enoxaparin Sodium 40 mg DAILY SC 02/23/25 10:00 03/04/25 10:24 40 MG Clopidogrel Bisulfate 75 mg DAILY PO 02/23/25 10:00 03/04/25 10:23 75 MG Lisinopril 20 mg DAILY PO 02/23/25 10:00 03/01/25 10:22 20 MG Albuterol 2.5 mg Q4HR PRN NEB 02/23/25 01:45 Cancel Atorvastatin Calcium 40 mg DAILY@DINNER PO 02/23/25 17:30 02/28/25 18:07 40 MG Citalopram Hydrobromide 20 mg DAILY PO 02/23/25 10:00 03/04/25 10:23 20 MG Haloperidol Lactate 1 mg Q6HR PRN IM 02/23/25 01:45 Levothyroxine Sodium 75 mcg QAM PO 02/23/25 07:00 03/04/25 06:33 75 MCG Potassium Chloride/Sodium Chloride 1,000 ml @ 50 mls/hr Q20H IV 02/27/25 19:30 03/03/25 23:30 50 MLS/HR Enteral Nutritional Formula 240 ml QID PO 02/27/25 22:00 03/04/25 06:00 240 ML Cefepime HCl 50 ml @ 12.5 mls/hr Q12HR IV 02/28/25 22:00 03/04/25 10:24 12.5 MLS/HR Vancomycin HCl 0 ml @ 0 mls/hr UD IV 02/28/25 20:00 Acetaminophen/ Hydrocodone Bitart 1 tab Q4HP PRN PO 03/01/25 16:30 03/04/25 11:12 1 TAB Sodium Chloride 10 ml QSHIFT@10,22 IV 03/01/25 22:00 03/04/25 10:24 10 ML laboratory and microbiology Laboratory Tests 03/04/25 06:14 02/28/25 05:46 Test 02/28/25 05:46 Range/Units Serum Glucose 75 74-106 mg/dL Assessment/Plan Continue Hospitalization telemetry bed Continue IV cefepime and vancomycin Refer patient to case sealer To transfer patient to SNF with IV antibiotics and wound VAC Dietary Evaluation Review Recommendations by RD: Dietary education by RD, Decrease Calorie Intake Comments: 1) Initiate Ensure High Protein qd 2) Add cardiac restriction to diet. Encourage optimal PO intake 3) Continue vitamin C and zinc sulfate supplementation 4) Follow-up with cardiology 4) Continue to monitor I&O, labs, and skin integrity Expected Outcomes/Goals: 1) appetite and labs to improve 2) wounds to improve 3) f/u in 3-5 days Plan discussed with: Patient JASS COTTO MD Mar 04, 2025 12:29
[2025-03-04] MEDS ORDERED: CEFE2INJ2 IJ (12:35)
[2025-03-05 01:00] VITALS: BP_SYST 83; BP_SYST 98; BP_DIAS 39; BP_DIAS 45; PULSE 57; RESP 17; TEMP 97.6; O2SAT 99
[2025-03-05 05:00] VITALS: BP 121/33; PULSE 52; RESP 16; TEMP 97.9; O2SAT 100
[2025-03-05 08:00] VITALS: PULSE 53
[2025-03-05 09:00] VITALS: BP 99/58; PULSE 70; RESP 18; TEMP 97.7; O2SAT 94
[2025-03-05 13:00] VITALS: BP 110/70; PULSE 54; RESP 18; TEMP 98.6; O2SAT 99
[2025-03-05 17:00] VITALS: BP 125/61; PULSE 50; RESP 14; TEMP 98.4; O2SAT 98
--- NOTE | 2025-03-05 21:24 | DVHPN2 ---
Progress Note - Dictate Date Seen: Mar 05, 2025 Medical Necessity Reason Pt with a Central, PICC or Fol: No Subjective The patient is seen on postop day 5 of her receiving uneventful excisional surgical debridement of decubitus ulcer by Dr. Arturo Del Real No delayed postop complications Her preop wound cultures from outside lab shows growth of Proteus sensitive to cephalosporins Her antibiotic coverage is revised to IV cefepime and vancomycin Case is discussed with Dr. Abdirahman mcintyre Patient to receive home IV antibiotics. No post PICC line procedure related complications noted Overnight events are reviewed through medical chart and case discussion with patient's assigned RN while making rounds on patient on the day of service vital signs Vital Sign Date Time Temp Pulse Resp B/P (MAP) Pulse Ox O2 Delivery O2 Flow Rate FiO2 03/05/25 17:00 98.4 50 14 125/61 (82) 98 98.4 03/05/25 08:05 Nasal Cannula* 2 28 Total Intake and Output 03/04/25 03/04/25 03/05/25 15:00 23:00 07:00 Intake Total 450 ml 160 ml Output Total 475 ml 380 ml Balance -25 ml -220 ml medications Current Medications Medications Dose Ordered Sig/Carmelita Route Start Time Stop Time Status Last Admin Dose Admin Nitroglycerin 0.4 mg Q5MINP PRN SL 02/23/25 01:00 Ascorbic Acid 500 mg BID PO 02/23/25 10:00 03/05/25 09:52 500 MG Zinc Sulfate 220 mg DAILY PO 02/23/25 10:00 03/05/25 09:52 220 MG Carbidopa/Levodopa 1 tab TID PO 02/23/25 06:00 03/05/25 15:20 1 TAB Pantoprazole Sodium 40 mg DAILY PO 02/23/25 10:00 03/05/25 10:46 40 MG Saccharomyces Boulardii 250 mg BID PO 02/23/25 10:00 03/05/25 09:53 250 MG Trazodone HCl 100 mg HS PO 02/23/25 22:00 03/04/25 21:58 100 MG Enoxaparin Sodium 40 mg DAILY SC 02/23/25 10:00 03/05/25 09:53 40 MG Clopidogrel Bisulfate 75 mg DAILY PO 02/23/25 10:00 03/05/25 09:52 75 MG Lisinopril 20 mg DAILY PO 02/23/25 10:00 03/01/25 10:22 20 MG Albuterol 2.5 mg Q4HR PRN NEB 02/23/25 01:45 Cancel Atorvastatin Calcium 40 mg DAILY@DINNER PO 02/23/25 17:30 03/04/25 17:25 40 MG Citalopram Hydrobromide 20 mg DAILY PO 02/23/25 10:00 03/05/25 10:46 20 MG Haloperidol Lactate 1 mg Q6HR PRN IM 02/23/25 01:45 Levothyroxine Sodium 75 mcg QAM PO 02/23/25 07:00 03/05/25 06:19 75 MCG Potassium Chloride/Sodium Chloride 1,000 ml @ 50 mls/hr Q20H IV 02/27/25 19:30 03/05/25 15:30 50 MLS/HR Enteral Nutritional Formula 240 ml QID PO 02/27/25 22:00 03/05/25 18:10 240 ML Cefepime HCl 50 ml @ 12.5 mls/hr Q12HR IV 02/28/25 22:00 03/05/25 09:53 12.5 MLS/HR Vancomycin HCl 0 ml @ 0 mls/hr UD IV 02/28/25 20:00 Acetaminophen/ Hydrocodone Bitart 1 tab Q4HP PRN PO 03/01/25 16:30 03/04/25 11:12 1 TAB Sodium Chloride 10 ml QSHIFT@10,22 IV 03/01/25 22:00 03/05/25 09:54 10 ML laboratory and microbiology Laboratory Tests 03/05/25 05:46 03/04/25 06:14 02/28/25 05:46 Test 02/28/25 05:46 Range/Units Serum Glucose 75 74-106 mg/dL Assessment/Plan Continue Hospitalization telemetry bed Continue IV cefepime and vancomycin Refer patient to correctional case records supervisor To transfer patient to SNF with IV antibiotics and wound VAC Dietary Evaluation Review Recommendations by RD: Dietary education by RD, Decrease Calorie Intake Comments: 1) Initiate Ensure High Protein qd 2) Add cardiac restriction to diet. Encourage optimal PO intake 3) Continue vitamin C and zinc sulfate supplementation 4) Follow-up with cardiology 4) Continue to monitor I&O, labs, and skin integrity Expected Outcomes/Goals: 1) appetite and labs to improve 2) wounds to improve 3) f/u in 3-5 days JASS COTTO MD Mar 05, 2025 21:24
== END 2025-03-05 20:30 | DRG 570 ==
LOC: EDBD 22:35 → ER 22:42 → OVERFLOW 02-23 00:50 → TELE-CENTR 02-23 01:59
PROVIDERS: ADMIT Specialist; ATTEND Specialist
PROC: 0JB70ZZ Excision of Back Subcutaneous Tissue and Fascia, Open Approach (ICD-10-PCS; principal; 2025-02-25 10:06)
PROC: 02HV33Z Insertion of Infusion Device into Superior Vena Cava, Percutaneous Approach (ICD-10-PCS; 2025-03-01)
PROC: B548ZZA Ultrasonography of Superior Vena Cava, Guidance (ICD-10-PCS; 2025-03-01)
DX: L89.154 Pressure ulcer of sacral region, stage 4 (principal); E43 Unspecified severe protein-calorie malnutrition; F02.C11 Dementia in other diseases classified elsewhere, severe, with agitation; D50.9 Iron deficiency anemia, unspecified; E11.69 Type 2 diabetes mellitus with other specified complication; G20.A1 Parkinson's disease without dyskinesia, without mention of fluctuations; I10 Essential (primary) hypertension; Z96.641 Presence of right artificial hip joint; Z68.29 Body mass index [BMI] 29.0-29.9, adult; E03.9 Hypothyroidism, unspecified; G30.9 Alzheimer's disease, unspecified; G40.909 Epilepsy, unspecified, not intractable, without status epilepticus; J45.909 Unspecified asthma, uncomplicated; F32.9 Major depressive disorder, single episode, unspecified; K21.9 Gastro-esophageal reflux disease without esophagitis; Z91.199 Patient's noncompliance with other medical treatment and regimen due to unspecified reason; Z74.01 Bed confinement status; Z82.49 Family history of ischemic heart disease and other diseases of the circulatory system; Z87.440 Personal history of urinary (tract) infections; Z79.899 Other long term (current) drug therapy
CPT/HCPCS: 36415; 36569; 71045; 76937; 80048; 80053; 80061; 80202; 81001; 82565; 82607; 82962; 83605; 83735; 84100; 85025; 85610; 85730; 86850; 86900; 86901; 87040; 87077; 87081; 87086; 87186; 93005; 96365; G0378; J0690; J0692; J2250; J2405; J2704; J3490